=== PATIENT | male | born 1955 | race Caucasian/White ===

== ENCOUNTER 2021-07-14 20:43 | Emergency (ER) | payer MEDICARE | END 2021-07-14 20:52 | disposition left against medical advice (07) | LOC: ER 20:43 | DX: R07.89 Other chest pain (principal); Z53.21 Procedure and treatment not carried out due to patient leaving prior to being seen by health care provider ==

== ENCOUNTER 2021-10-02 19:33 | Inpatient (IN) | payer MEDICARE ==
[~2021-10-02] VITALS: Ht 182.9 cm; Wt 107.1 kg
[2021-10-02] MEDS ORDERED: NITROGLYCERIN SUBLINGUAL 0.4 MG BOTTLE OF 25. SL PRN (20:00)
[2021-10-02 20:09] LABS: BASO # 0.1 x10^3/uL (0.0-0.2); BASO % 1 % (0-3); EOS # 0.1 x10^3/uL (0.0-0.7); EOS % 1 % (0-3); HEMATOCRIT 47.6 % (39.0-53.0); HEMOGLOBIN 15.9 g/dL (13.0-17.5); LYMPH # 2.5 x10^3/uL (1.0-4.8); LYMPH % 20 % (24-48); MEAN CORPUSCULAR HEMOGLOBIN 29 pg (25-35); MEAN CORPUSCULAR HGB CONC 33 g/dL (31-37); MEAN CORPUSCULAR VOLUME 86 fL (79-100); MONO # 0.6 x10^3/uL (0.0-1.1); MONO % 5 % (0-9); NEUT # 8.9 x10^3/uL (1.8-7.7); NEUT % 73 % (31-73); PLATELET COUNT 215 x10^3/uL (140-400); RED BLOOD COUNT 5.55 x10^6/uL (4.30-5.70); RED CELL DISTRIBUTION WIDTH 14.1 % (11.5-14.5); WHITE BLOOD COUNT 12.2 x10^3/uL (4.0-11.0)
[2021-10-02] MEDS ORDERED: ONDANSETRON PF 4 MG/2 ML VIAL. ONE (20:12)
[2021-10-02] MEDS: MORPHINE SULFATE 4 MG/ML INJ. IV/SQ PRN ×3 (20:12→20:16)
[2021-10-02 20:22] LABS: CALCIUM 8.4 mg/dL (8.5-10.1); CREATININE 1.1 mg/dL (0.7-1.3); POTASSIUM 3.5 mmol/L (3.5-5.1)
[2021-10-02 20:27] LABS: ALBUMIN 3.4 g/dL (3.4-5.0); ALBUMIN/GLOBULIN RATIO 0.9 (1.0-1.7); MAGNESIUM 1.9 mg/dL (1.8-2.4); TOTAL BILIRUBIN 0.4 mg/dL (0.2-1.0)
[2021-10-02] MEDS ORDERED: ASPIRIN 325 MG TABLET PO ONE (20:30)
--- NOTE | 2021-10-02 20:33 | EKG ---
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
--- NOTE | 2021-10-02 20:42 | RAD ---
XR CHEST 1V 10/02/2021 8:07 PM INDICATION: Chest pain COMPARISON: None available TECHNIQUE: Portable frontal view of the chest is provided. FINDINGS: The cardiomediastinal silhouette is within normal limits. There is mild perihilar interstitial promin ence.. There are no significant pleural effusions. There is no pulmonary vascular congestion. No pneumothora x. No suspicious osseous abnormality. IMPRESSION: There is mild perihilar interstitial prominence as may be seen with interstitial pneumonitis of infec tious/inflammatory etiology versus developing interstitial edema. Short-term follow-up two-view chest radiograph could be of benefit. Electronically signed by: Nidia Cee MD (10/02/2021 8:40 PM) GIL
[2021-10-02] MEDS ORDERED: HEPARIN for IV BOLUS 10,000 UNIT/10 ML VIAL. IV PRN (20:45)
[2021-10-02] MEDS ORDERED: ONDANSETRON PF 4 MG/2 ML VIAL. IVP ONE (20:45)
[2021-10-02] MEDS ORDERED: NITROGLYCERIN PREMIX 250 ML IV ONE ×2 (20:45→21:00)
[2021-10-02] MEDS ORDERED: HEPARIN 25,000UTS/250ML PREMIX 250 ML IV PRN (20:45)
[2021-10-02] MEDS ORDERED: fentaNYL PF VIAL 100 MCG/2 ML VIAL ONE ×2 (20:47→21:42)
--- NOTE | 2021-10-02 20:51 | PHYS DOC ---
Past Medical History Past Medical History: A-Fib, Hypertension (SHANE ESTRADA POLEYARD SUPERVISOR) Past Surgical History: Other Additional Past Surgical Histo: cardiac ablation (SHANE ESTRADA POLEYARD SUPERVISOR) Smoking Status: Never Smoker Alcohol Use: None (SHANE ESTRADA POLEYARD SUPERVISOR) General Adult EDM: Chief Complaint: CHEST PAIN HPI: HPI: Patient is a 66 year old male with history of hypertension, A. fib, not on any medications by his choice, current smoker who presents the ED today complaining of sharp constant 6 out of 10 left-sided chest pain that began this afternoon around "noonish". Patient states the pain radiates to the left arm, he states he had similar pain on Wednesday this week but it went away. Patient states he does not have a PCP right now. He states he used to be on blood pressure medicines and heart medicines but stopped taking them around 4 months ago because he was gaining weight. (SHANE ESTRADA POLEYARD SUPERVISOR) Review of Systems: Review of Systems: Constitutional: Denies fever or chills. [] Eyes: Denies change in visual acuity. [] HENT: Denies nasal congestion or sore throat. [] Respiratory: Denies cough or shortness of breath. [] Cardiovascular: Reports chest pain GI: Denies abdominal pain, nausea, vomiting, bloody stools or diarrhea. [] : Denies dysuria. [] Musculoskeletal: Denies back pain or joint pain. [] Integument: Denies rash. [] Neurologic: Denies headache, focal weakness or sensory changes. [] Psychiatric: Denies depression or anxiety. [] (SHANE ESTRADA POLEYARD SUPERVISOR) Heart Score: C/O Chest Pain: Yes HEART Score for Chest Pain: HEART Score for Chest Pain Response (Comments) Value History Highly Suspicious [address] Depression 2 Age > 65 2 Risk Factors >3 Risk Factors or Hx CAD 2 Troponin >3 x Normal Limit 2 Total 10 Risk Factors: Risk Factors: DM, Current or recent (<one month) smoker, HTN, HLP, family history of CAD, obesity. Risk Scores: Score 0 - 3: 2.5% MACE over next 6 weeks - Discharge Home Score 4 - 6: 20.3% MACE over next 6 weeks - Admit for Clinical Observation Score 7 - 10: 72.7% MACE over next 6 weeks - Early Invasive Strategies (SHANE ESTRADA APRN) C/O Chest Pain: Yes HEART Score for Chest Pain: HEART Score for Chest Pain Response (Comments) Value History Highly Suspicious [address] Depression 2 Age >45 - < 65 1 Risk Factors >3 Risk Factors or Hx CAD 2 Troponin >3 x Normal Limit 2 Total 9 (JHOANA MENDOZA DO) Current Medications: Current Medications Medications (Trade) Dose Ordered Sig/Massiel Start Time Stop Time Status Last Admin Dose Admin Aspirin (Óscar Aspirin) 325 mg 1X ONCE 10/02/21 20:30 10/02/21 20:31 DC 10/02/21 20:13 325 MG Heparin Sodium (Porcine) (Heparin Sodium) 2,700 unit PRN Q6HRS PRN 10/02/21 20:45 UNV Heparin Sodium/ Dextrose 250 ml @ 0 mls/hr CONT PRN 10/02/21 20:45 UNV Morphine Sulfate (Morphine Sulfate) 4 mg PRN Q15MIN PRN 10/02/21 20:00 10/03/21 19:59 10/02/21 20:16 4 MG Nitroglycerin (Nitrostat) 0.4 mg PRN Q5MIN PRN 10/02/21 20:00 10/03/21 19:59 Nitroglycerin/ Dextrose 250 ml @ 1.5 mls/hr 1X ONCE 10/02/21 20:45 10/02/21 20:46 DC Ondansetron HCl (Zofran) 4 mg STK-MED ONCE 10/02/21 20:12 10/02/21 20:13 DC (SHANE ESTRADA POLEYARD SUPERVISOR) Allergies: Allergies: Allergies Coded Allergies Type Severity Reaction Last Updated Verified No Known Drug Allergies 10/02/21 No (SHANE ESTRADA POLEYARD SUPERVISOR) Physical Exam: PE: Constitutional: Well developed, well nourished, no acute distress, non-toxic appearance. [] HENT: Normocephalic, atraumatic, bilateral external ears normal, oropharynx moist, no oral exudates, nose normal. [] Eyes: PERRLA, EOMI, conjunctiva normal, no discharge. [] Neck: Normal range of motion, no tenderness, supple, no stridor. [] Cardiovascular:Heart rate regular rhythm, no murmur [] Lungs & Thorax: Bilateral breath sounds clear to auscultation [] Abdomen: Bowel sounds normal, soft, no tenderness, no masses, no pulsatile masses. [] Skin: Warm, dry, no erythema, no rash. [] Back: No tenderness, no CVA tenderness. [] Extremities: No tenderness, no cyanosis, no clubbing, ROM intact, no edema. [] Neurologic: Alert and oriented X 3, normal motor function, normal sensory function, no focal deficits noted. [] Psychologic: Affect normal, judgement normal, mood normal. [] (SHANE ESTRADA APRN) Current Patient Data: Labs: Laboratory Tests Test 10/02/21 19:50 White Blood Count 12.2 x10^3/uL (4.0-11.0) H Red Blood Count 5.55 x10^6/uL (4.30-5.70) Hemoglobin 15.9 g/dL (13.0-17.5) Hematocrit 47.6 % (39.0-53.0) Mean Corpuscular Volume 86 fL (79-100) Mean Corpuscular Hemoglobin 29 pg (25-35) Mean Corpuscular Hemoglobin Concent 33 g/dL (31-37) Red Cell Distribution Width 14.1 % (11.5-14.5) Platelet Count 215 x10^3/uL (140-400) Neutrophils (%) (Auto) 73 % (31-73) Lymphocytes (%) (Auto) 20 % (24-48) L Monocytes (%) (Auto) 5 % (0-9) Eosinophils (%) (Auto) 1 % (0-3) Basophils (%) (Auto) 1 % (0-3) Neutrophils # (Auto) 8.9 x10^3/uL (1.8-7.7) H Lymphocytes # (Auto) 2.5 x10^3/uL (1.0-4.8) Monocytes # (Auto) 0.6 x10^3/uL (0.0-1.1) Eosinophils # (Auto) 0.1 x10^3/uL (0.0-0.7) Basophils # (Auto) 0.1 x10^3/uL (0.0-0.2) Sodium Level 138 mmol/L (136-145) Potassium Level 3.5 mmol/L (3.5-5.1) Chloride Level 101 mmol/L (98-107) Carbon Dioxide Level 29 mmol/L (21-32) Anion Gap 8 (6-14) Blood Urea Nitrogen 15 mg/dL (8-26) Creatinine 1.1 mg/dL (0.7-1.3) Estimated GFR (Cockcroft-Gault) 67.0 BUN/Creatinine Ratio 14 (6-20) Glucose Level 236 mg/dL (70-99) H Calcium Level 8.4 mg/dL (8.5-10.1) L Magnesium Level 1.9 mg/dL (1.8-2.4) Total Bilirubin 0.4 mg/dL (0.2-1.0) Aspartate Amino Transferase (AST) 38 U/L (15-37) H Alanine Aminotransferase (ALT) 23 U/L (16-63) Alkaline Phosphatase 165 U/L (46-116) H Troponin I High Sensitivity 3251 ng/L (4-75) H TF-Cau-Q-Type Natriuretic Peptide 931 pg/mL (0-124) H Total Protein 7.0 g/dL (6.4-8.2) Albumin 3.4 g/dL (3.4-5.0) Albumin/Globulin Ratio 0.9 (1.0-1.7) L Thyroid Stimulating Hormone (TSH) 2.701 uIU/mL (0.358-3.74) Laboratory Tests 10/02/21 19:50 Laboratory Tests 10/02/21 19:50 Vital Signs: Vital Signs Date Time Temp Pulse Resp B/P (MAP) Pulse Ox O2 Delivery O2 Flow Rate FiO2 10/02/21 20:16 16 98 Room Air 10/02/21 19:57 99.5 93 204/89 (127) 99.5 (SHANE ESTRADA APRN) EKG: EKG: [] (SHANE ESTRADA APRN) Radiology/Procedures: Radiology/Procedures: []PROCEDURE: PORTABLE CHEST 1V XR CHEST 1V 10/02/2021 8:07 PM INDICATION: Chest pain COMPARISON: None available TECHNIQUE: Portable frontal view of the chest is provided. FINDINGS: The cardiomediastinal silhouette is within normal limits. There is mild perihilar interstitial prominence.. There are no significant pleural effusions. There is no pulmonary vascular congestion. No pneumothorax. No suspicious osseous abnormality. IMPRESSION: There is mild perihilar interstitial prominence as may be seen with interstitial pneumonitis of infectious/inflammatory etiology versus developing interstitial edema. Short-term follow-up two-view chest radiograph could be of benefit. Electronically signed by: Kevin Rodriguez MD (10/02/2021 8:40 PM) [facility] DICTATED and SIGNED BY: KEVIN RODRIGUEZ MD DATE: 10/02/212037 (SHANE ESTRADA APRN) Course & Med Decision Making: Course & Med Decision Making Pertinent Labs and Imaging studies reviewed. (See chart for details) This is a 66-year-old male patient presented to the ED today complaining of chest pain that began today. Reports having similar pain on Wednesday this week. EKG positive for STEMI. Troponin 3251 Dr. Mendoza evaluated patient. Patient was taken to Professor Of Practice by Dr. Talamantes (SHANE ESTRADA APRN) Course & Med Decision Making 2000HRS- Noted an acute change on monitor technician - appeared to have ST elevation Patient also noted increased pain and vomited. EKG concerning for stemi ST depression 1, avl, v2-v4 ST elevation 3 and AVF Lab called with trop >3000 Cardiology pages. Heprin and nitro ordered. 2100hrs- Discussed patient with Cardiology. EKG reviewed. Will active a STEMI. Patients Care and treatment plan provided by in conjunction with ER Nurse Practitioner. I personally evaluated the patient. (JHOANA MENDOZA DO) Dragon Disclaimer: Chuy Disclaimer: This electronic medical record was generated, in whole or in part, using a voice recognition dictation system. (SHANE ESTRADA APRN) Departure Departure Impression: Primary Impression: STEMI (ST elevation myocardial infarction) Qualified Codes: I21.3 - ST elevation (STEMI) myocardial infarction of unspecified site Additional Impressions: Chest pain Qualified Codes: R07.9 - Chest pain, unspecified Smoking addiction Disposition: ADMITTED INPATIENT Admitting Physician: SOFIA (JHOANA MENDOZA DO) Condition: STABLE Referrals: UNKNOWN PCP NAME (PCP) SHANE ESTRADA APRN Oct 02, 2021 20:51 JHOANA MENDOZA DO Oct 02, 2021 21:22
[2021-10-02] MEDS ORDERED: HEPARIN for IV BOLUS 10,000 UNIT/10 ML VIAL. IV ONE (21:15)
[2021-10-02] MEDS ORDERED: fentaNYL PF VIAL 100 MCG/2 ML VIAL IVP ONE (21:15)
[2021-10-02] MEDS ORDERED: HEPARIN for ARTERIAL LINE 1,500 ML ONE (21:37)
[2021-10-02] MEDS ORDERED: IODIXANOL 320 MG/ML 100 ML VIAL. ONE (21:37)
[2021-10-02] MEDS ORDERED: LIDOCAINE 1% Multi-Dose 20 ML VIAL. ONE (21:37)
[2021-10-02] MEDS ORDERED: MIDAZOLAM HCL/PF 2 MG/2 ML VIAL. ONE (21:42)
[2021-10-02] MEDS ORDERED: VERAPAMIL 5 MG/2 ML VIAL. ONE (21:42)
[2021-10-02] MEDS ORDERED: HEPARIN for IV BOLUS 10,000 UNIT/10 ML VIAL. ONE (21:42)
[2021-10-02] MEDS ORDERED: NITROGLYCERIN 200 MCG/2 ML SYRINGE FOR CATH/VASC LAB. ONE ×2 (21:43→22:48)
[2021-10-02 21:52] LABS: BACTERIA,URINE 0 /HPF (0-FEW); RBC,URINE 0 /HPF (0-2); WBC,URINE RARE /HPF (0-4)
[2021-10-02] MEDS ORDERED: TIROFIBAN 12.5MG -0.9% NS 250 ML IV ONE (22:05)
[2021-10-02] MEDS: TIROFIBAN 12.5MG -0.9% NS 250 ML IV PRN (22:07)
[2021-10-02] MEDS ORDERED: ATROPINE 0.5 MG/5 ML DISP.SYRINGE. ONE (22:09)
[2021-10-02] MEDS ORDERED: ATROPINE 1 MG/10 ML DISP.SYRINGE. ONE (22:10)
[2021-10-02] MEDS ORDERED: fentaNYL PF VIAL 100 MCG/2 ML VIAL IV ONE (22:30)
[2021-10-02] MEDS ORDERED: CONTRAST GIVEN. MC PRN (22:30)
[2021-10-02] MEDS ORDERED: PRASUGREL 10 MG TABLET. PO ONE (22:30)
[2021-10-02] MEDS ORDERED: IODIXANOL 320 MG/ML 100 ML VIAL. IART ONE (22:30)
[2021-10-02] MEDS ORDERED: NITROGLYCERIN 200 MCG/2 ML SYRINGE FOR CATH/VASC LAB. IART ONE (22:30)
[2021-10-02] MEDS ORDERED: LIDOCAINE 1% PF 2 ML VIAL. INJ ONE (22:30)
[2021-10-02] MEDS ORDERED: PRASUGREL 10 MG TABLET. ONE (22:30)
[2021-10-02] MEDS ORDERED: VERAPAMIL 5 MG/2 ML VIAL. IART ONE (22:30)
[2021-10-02] MEDS ORDERED: MIDAZOLAM HCL/PF 2 MG/2 ML VIAL. IV ONE (22:30)
[2021-10-02] MEDS ORDERED: HEPARIN for IV BOLUS 10,000 UNIT/10 ML VIAL. IART ONE (22:30)
[2021-10-02] MEDS ORDERED: ONDANSETRON PF 4 MG/2 ML VIAL. IVP PRN (22:45)
[2021-10-02] MEDS ORDERED: MORPHINE SULFATE 4 MG/ML INJ. IVP PRN (22:45)
[2021-10-02 22:50] VITALS: BP 176/88
[2021-10-02 23:05] VITALS: BP 144/70
[2021-10-02 23:15] VITALS: BP 148/67
--- NOTE | 2021-10-02 23:18 | CONS ---
DATE OF CONSULTATION: 10/02/2021 REASON FOR CONSULTATION: High risk non-STEMI. HISTORY OF PRESENT ILLNESS: The patient is a pleasant 66-year-old man with past medical history as noted below who presents to the hospital in the setting of stuttering chest pain. His initial EKG suggestive of some mild ischemic changes, but a repeat EKG was concerning for a more high risk non-STEMI with significant inferolateral ST segment depressions and subtle ST elevations in the inferior leads. Therefore, he was emergently taken to the catheterization laboratory for further evaluation given ongoing chest discomfort. PAST MEDICAL HISTORY: 1. Hypertension. 2. Dyslipidemia. 3. Tobacco abuse. 4. Diabetes. 5. Obesity. 6. Atrial fibrillation. SOCIAL HISTORY: The patient denies any alcohol, illicit drug use. He is . He has moved here to [place] from [place] because of his son. He unfortunately currently not taking any medications. FAMILY HISTORY: Noncontributory. REVIEW OF SYSTEMS: Negative for 10 out of 14 systems reviewed, unless otherwise mentioned above in HPI. ALLERGIES: No known drug allergies. CURRENT CARDIOVASCULAR MEDICATIONS: None. PHYSICAL EXAMINATION: VITAL SIGNS: Afebrile, heart rate 84, blood pressure 160/80, pulse ox 97% on 2 liters. GENERAL: He is alert and oriented, in no acute distress. HEAD AND NECK: Unremarkable. CARDIAC: Regular rate and rhythm without murmurs, rubs or gallops. LUNGS: Clear to auscultation bilaterally. ABDOMEN: Obese, protuberant, nontender. EXTREMITIES: No clubbing, cyanosis, or edema with 2+ radial and dorsalis pedis pulses. NEUROLOGIC: No focal deficits. MUSCULOSKELETAL: No trauma. DIAGNOSTIC STUDIES: EKG as noted above. LABORATORY DATA: Troponin is elevated to 3000. Creatinine and hemoglobin are unremarkable. IMPRESSION: High risk non-STEMI with culprit lesion being in the RCA with successful PCI with overlapping stents with intravascular ultrasound guidance. RECOMMENDATIONS: 1. Aspirin 81 mg daily. 2. Prasugrel 10 mg daily. 3. Continue Tirofiban drip for another 18 hours. Continue supportive care for now and blood pressure management. We will initiate high dose statin therapy and cardiac rehabilitation referral. Anticipate discharge in the next 24 hours. Thank you for this consultation. ESHA DR: Dipika TID: [id number]
[2021-10-02 23:30] VITALS: BP 156/72
--- NOTE | 2021-10-02 23:41 | CARD ---
MR#: [id number] Date of Study: 10/02/2021 Ordering Physician: HARIS KHAN, Referring Physician: HARIS KHAN, Tech: RT Estephanie(R) APPROVED REPORT Technologist: RT Estephanie(R) Nurse: Malaika Fowler RN Procedure(s) performed: fluoro time: 7.4 min dose: 72 gycm2 contrast: 112cc mod sedation: 50min LHC, Coronary angiography PCI of the RCA with IVUS guidance for ACUTE UT HISTORY The patient is a 66 year-old male with a history of : tobacco history() , hypertension, dyslipidemia. INDICATION The indication(s) include : non-STEMI . [facility] Clinical Frailty Scale [facility] Clinical Frailty Scale: Moderately Frail Heart Failure Heart Failure: Yes If Yes, Newly Diagnosed: No If Yes, HF Type: Diastolic If Yes, NYHA Class: Class III CASE TECHNIQUE IV conscious sedation was used throughout procedure with appropriate monitoring and was performed in the presence of a registered nurse who was an independent trained observer other than the physician p erforming the procedure. During this case, Fluoroscopy and low osmolar contrast were used for imaging . Specimen(s) Removed: N/A Estimated Blood loss: 15 cc's. PROCEDURE NARRATIVE Clinical information: 66-year-old male presented to the hospital in the setting of stuttering chest pain for about 1 week. He was found to have an elevated troponin and due to persistent pain and EKG changes suggestive of a ctive ischemia he was taken urgently to the catheterization laboratory. Procedure details: After appropriate informed consent the right wrist was prepped and draped in usual sterile fashion. Under 1% lidocaine local anesthesia a 6 [place] sheath was placed in the right radial artery. Diagnos tic angiography was then performed with a 6 [place] TIG catheter. Left ventricular end-diastolic pres sure was obtained with a TIG catheter and a pullback was performed. Findings: Aorta 160/80 LVEDP 15 mmHg No LV to aortic pullback gradient Coronary angiography: Left main is a large caliber vessel with normal angiographic appearance LAD is a moderate to large caliber vessel with mild diffuse luminal irregularities of up to 20% D1 is a small to moderate caliber vessel with a proximal 50% stenosis Left circumflex is a moderate caliber nondominant vessel with mild diffuse irregularities of up to 20 % OM1 is a small to moderate caliber vessel with mild to moderate diffuse irregularities of up to 30% RCA is a large caliber dominant vessel with a mid subtotal occlusion. Interventional technique: Heparin and tirofiban were used for anticoagulation. Through a 6 [place] JR4 guide catheter a Prowate r wire was placed in the distal RCA. Balloon angioplasty was performed with a 3.0 x 15 mm balloon. Intravascular ultrasound was then obtained and vessel size measured approximately 4.5-4.0 from the pr oximal to the distal segment of the RCA. Next, a Promus 4.0 x 38 and a resolute 4.5 x 22 mm drug-elu ting stents were implanted in the proximal and mid to distal RCA in overlapping fashion. The overlap segment was then postdilated with the 4.5 mm noncompliant balloon at nominal pressure. Final angiog tramaine demonstrated excellent stent expansion with SERENA-3 flow in the vessel no evidence of guide or w gt related complications. The patient received 60 mg of prasugrel at case completion. At case comp letion the sheaths and catheters were removed and hemostasis was achieved via a Terumo radial band in flated to 11 mL. No acute complications PCI Technique Lesion The lesion stenosis prior to intervention was % with SERENA 1 flow. SERENA Flow SERENA Flow (Pre-Intervention): SERENA-1 SERENA Flow (Post-Intervention): SERENA-3 Conclusion 1. Acute on chronic diastolic heart failure in the setting of high risk non-ST elevation UT 2. One-vessel coronary artery disease, status post PCI of the proximal and mid RCA with implantation of overlapping 4.5 x 22 and 4.0 x 38 mm drug-eluting stents with intravascular ultrasound guidance. Recommendations Aspirin 81 mg daily Prasugrel 10 mg daily Cardiac rehabilitation therapy High-dose statin therapy Signed by : Haris Khan, Electronically Approved : 10/02/2021 23:41:01
[2021-10-02 23:45] VITALS: BP 150/68
[2021-10-03] VITALS (28 sets, daily range): BP systolic 105–164; BP diastolic 62–108
[2021-10-03 02:35] LABS: BASO # 0.1 x10^3/uL (0.0-0.2); BASO % 1 % (0-3); EOS # 0.1 x10^3/uL (0.0-0.7); EOS % 1 % (0-3); HEMATOCRIT 46.6 % (39.0-53.0); HEMOGLOBIN 15.5 g/dL (13.0-17.5); LYMPH # 3.1 x10^3/uL (1.0-4.8); LYMPH % 26 % (24-48); MEAN CORPUSCULAR HEMOGLOBIN 28 pg (25-35); MEAN CORPUSCULAR HGB CONC 33 g/dL (31-37); MEAN CORPUSCULAR VOLUME 85 fL (79-100); MONO % 8 % (0-9); NEUT # 7.7 x10^3/uL (1.8-7.7); NEUT % 65 % (31-73); PLATELET COUNT 220 x10^3/uL (140-400); RED BLOOD COUNT 5.46 x10^6/uL (4.30-5.70); WHITE BLOOD COUNT 11.9 x10^3/uL (4.0-11.0)
[2021-10-03 02:59] LABS: ALBUMIN 3.3 g/dL (3.4-5.0); ALBUMIN/GLOBULIN RATIO 1.1 (1.0-1.7); CALCIUM 8.4 mg/dL (8.5-10.1); CREATININE 0.8 mg/dL (0.7-1.3); GFR 96.7; POTASSIUM 3.9 mmol/L (3.5-5.1); TOTAL BILIRUBIN 0.4 mg/dL (0.2-1.0); TOTAL PROTEIN 6.2 g/dL (6.4-8.2)
[2021-10-03] MEDS: TIROFIBAN 12.5MG -0.9% NS 250 ML IV PRN (06:32)
--- NOTE | 2021-10-03 07:20 | EKG ---
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
--- NOTE | 2021-10-03 07:34 | PDOC ---
REBECA RINALDI FUNERAL CAR DRIVER 10/03/21 0734: CARDIO Progress Notes Date and Time Date of Service 10/03/2021 Time of Evaluation 0800 Subjective Subjective: No Chest Pain, No shortness of breath, No Palpitations Vitals Vitals Vital Signs Date Time Temp Pulse Resp B/P (MAP) Pulse Ox O2 Delivery O2 Flow Rate FiO2 10/03/21 06:00 79 13 132/73 (92) 92 Room Air 10/03/21 04:00 99.7 99.7 10/02/21 22:50 2.0 Weight Weight [ ] Input and Output Intake and Output Intake and Output 10/03/21 07:00 Intake Total 641.8 ml Output Total 350 ml Balance 291.8 ml Intake Oral 400 ml IV Total 241.8 ml Output Urine Total 350 ml Laboratory Labs Laboratory Tests Test 10/02/21 19:50 10/02/21 21:36 10/02/21 22:10 10/03/21 02:00 White Blood Count 12.2 x10^3/uL (4.0-11.0) 11.9 x10^3/uL (4.0-11.0) Red Blood Count 5.55 x10^6/uL (4.30-5.70) 5.46 x10^6/uL (4.30-5.70) Hemoglobin 15.9 g/dL (13.0-17.5) 15.5 g/dL (13.0-17.5) Hematocrit 47.6 % (39.0-53.0) 46.6 % (39.0-53.0) Mean Corpuscular Volume 86 fL (79-100) 85 fL (79-100) Mean Corpuscular Hemoglobin 29 pg (25-35) 28 pg (25-35) Mean Corpuscular Hemoglobin Concent 33 g/dL (31-37) 33 g/dL (31-37) Red Cell Distribution Width 14.1 % (11.5-14.5) 14.0 % (11.5-14.5) Platelet Count 215 x10^3/uL (140-400) 220 x10^3/uL (140-400) Neutrophils (%) (Auto) 73 % (31-73) 65 % (31-73) Lymphocytes (%) (Auto) 20 % (24-48) 26 % (24-48) Monocytes (%) (Auto) 5 % (0-9) 8 % (0-9) Eosinophils (%) (Auto) 1 % (0-3) 1 % (0-3) Basophils (%) (Auto) 1 % (0-3) 1 % (0-3) Neutrophils # (Auto) 8.9 x10^3/uL (1.8-7.7) 7.7 x10^3/uL (1.8-7.7) Lymphocytes # (Auto) 2.5 x10^3/uL (1.0-4.8) 3.1 x10^3/uL (1.0-4.8) Monocytes # (Auto) 0.6 x10^3/uL (0.0-1.1) 1.0 x10^3/uL (0.0-1.1) Eosinophils # (Auto) 0.1 x10^3/uL (0.0-0.7) 0.1 x10^3/uL (0.0-0.7) Basophils # (Auto) 0.1 x10^3/uL (0.0-0.2) 0.1 x10^3/uL (0.0-0.2) Prothrombin Time 13.0 SEC (11.7-14.0) Prothromb Time International Ratio 1.0 (0.8-1.1) Activated Partial Thromboplast Time 30 SEC (24-38) Sodium Level 138 mmol/L (136-145) 140 mmol/L (136-145) Potassium Level 3.5 mmol/L (3.5-5.1) 3.9 mmol/L (3.5-5.1) Chloride Level 101 mmol/L (98-107) 104 mmol/L (98-107) Carbon Dioxide Level 29 mmol/L (21-32) 28 mmol/L (21-32) Anion Gap 8 (6-14) 8 (6-14) Blood Urea Nitrogen 15 mg/dL (8-26) 14 mg/dL (8-26) Creatinine 1.1 mg/dL (0.7-1.3) 0.8 mg/dL (0.7-1.3) Estimated GFR (Cockcroft-Gault) 67.0 96.7 BUN/Creatinine Ratio 14 (6-20) 18 (6-20) Glucose Level 236 mg/dL (70-99) 108 mg/dL (70-99) Calcium Level 8.4 mg/dL (8.5-10.1) 8.4 mg/dL (8.5-10.1) Magnesium Level 1.9 mg/dL (1.8-2.4) Total Bilirubin 0.4 mg/dL (0.2-1.0) 0.4 mg/dL (0.2-1.0) Aspartate Amino Transf (AST/SGOT) 38 U/L (15-37) 56 U/L (15-37) Alanine Aminotransferase (ALT/SGPT) 23 U/L (16-63) 21 U/L (16-63) Alkaline Phosphatase 165 U/L (46-116) 157 U/L (46-116) Troponin I High Sensitivity 3251 ng/L (4-75) 98311 ng/L (4-75) CM-Iyv-E-Type Natriuretic Peptide 931 pg/mL (0-124) Total Protein 7.0 g/dL (6.4-8.2) 6.2 g/dL (6.4-8.2) Albumin 3.4 g/dL (3.4-5.0) 3.3 g/dL (3.4-5.0) Albumin/Globulin Ratio 0.9 (1.0-1.7) 1.1 (1.0-1.7) Thyroid Stimulating Hormone (TSH) 2.701 uIU/mL (0.358-3.74) Urine Collection Type Unknown Urine Color (Auto) Light yellow Urine Turbidity Clear Urine pH (Auto) 5.5 (<5.0-8.0) Urine Specific [place] 1.031 (1.000-1.030) Urine Protein (Auto) Negative mg/dL (Negative) Urine Glucose (Auto)(UA) 100 mg/dL (Negative) Urine Ketones (Auto) Negative mg/dL (Negative) Urine Blood (Auto) Negative (Negative) Urine Nitrite Negative (Negative) Urine Bilirubin (Auto) Negative (Negative) Urine Urobilinogen (Auto) Normal mg/dL (Normal) Urine Leukocyte Esterase (Auto) Negative (Negative) Urine RBC 0 /HPF (0-2) Urine WBC Rare /HPF (0-4) Urine Squamous Epithelial Cells Occ /LPF Urine Bacteria 0 /HPF (0-FEW) Urine Mucus Slight /LPF Activated Clotting Time 250 sec (92-181) Physical Exam HEENT: Neck Supple W Full Motion Chest: Symmetric LUNGS: Clear to Auscultation Heart: S1S2, RRR (SR) Abdomen: Soft N/T Extremities: No Edema, No Calf Tenderness Neurology: alert, oriented, follow commands Assessment Assessment 1. High risk NSTEMI: S/P PCI/SHERINE to proximal and mid RCA 2. CAD: as above 3. HTN: controlled 4. HLP 5. DM2: per PCP 6. PAFIB: unclear details Recommendations 1. Continue aggrastat 18 hrs post. Start on ASA and effient. DC NTG 2. Start secondary prevention measures 3. FLP, TTE, A1C Justicifation of Admission Dx: Justifications for Admission: Justification of Admission Dx: Yes HARIS KHAN MD 10/03/21 5907: CARDIO Progress Notes Plan Plan Pt. seen and examined on 10/03/21 Agree with above WOOD CRAFTSMAN note. Patient had some melena and BRBPR. Monitor for any bleeding. Stop tirofiban. BP is well controlled. Echo wnl. Anticipate DC tmrw if no further bleeding issues. Thanks REBECA RINALDI [employer]IVER Oct 03, 2021 07:34 HARIS KHAN MD Oct 03, 2021 23:07
[2021-10-03 08:21] LABS: CHOLESTEROL/HDL RATIO 6.9
--- NOTE | 2021-10-03 08:21 | PDOC1 ---
History and Physical Date of Admission Date of Admission DATE: 10/03/21 TIME: 07:56 Identification/Chief Complaint Chief Complaint Chest pain Source Source: Patient History of Present Illness History of Present Illness Patient is a 66-year-old male with past medical history hypertension, who presents to the ED with complaints of sharp chest pain. On EKG initial concern was for STEMI, repeat EKG showed more high risk NSTEMI. Labs on admission showed WBC 12.2, CBG 236, high sensitive troponin 21,191. Due to significant ST depressions and continuous pain he was taken directly to [facility]. Patient has been admitted for further medical management. Past Medical History Past Medical History HTN, HLD, DM2, obesity, atrial fibrillation Past Surgical History Past Surgical History Cardiac ablation Family History Family History Strong family history of [place] and cardiac disease Social History Smoke: <1 pack per day ALCOHOL: none Drugs: None Current Problem List Problem List Problems Medical Problems: (1) Chest pain Status: Acute (2) Smoking addiction Status: Acute (3) STEMI (ST elevation myocardial infarction) Status: Acute Current Medications Current Medications Current Medications Aspirin (Óscar Aspirin) 325 mg 1X ONCE PO Last administered on 10/02/21at 20:13; Start 10/02/21 at 20:30; Stop 10/02/21 at 20:31; Status DC Nitroglycerin (Nitrostat) 0.4 mg PRN Q5MIN PRN SL CP RATING > 1/10; Start 10/02/21 at 20:00; Stop 10/03/21 at 19:59 Morphine Sulfate (Morphine Sulfate) 4 mg PRN Q15MIN PRN IV/SQ PAIN GREATER THAN 3/10 Last administered on 10/02/21at 20:16; Start 10/02/21 at 20:00; Stop 10/03/21 at 19:59 Ondansetron HCl (Zofran) 4 mg 1X ONCE IVP Last administered on 10/02/21at 20:15; Start 10/02/21 at 20:45; Stop 10/02/21 at 20:46; Status DC Ondansetron HCl (Zofran) 4 mg STK-MED ONCE .ROUTE ; Start 10/02/21 at 20:12; Stop 10/02/21 at 20:13; Status DC Nitroglycerin/ Dextrose 250 ml @ 1.5 mls/hr 1X ONCE IV Last administered on 10/02/21at 20:53; Start 10/02/21 at 21:00; Stop 10/09/21 at 19:39 Nitroglycerin/ Dextrose 250 ml @ 1.5 mls/hr 1X ONCE IV ; Start 10/02/21 at 20:45; Stop 10/02/21 at 20:46; Status DC Heparin Sodium/ Dextrose 250 ml @ 12.924 mls/ hr CONT PRN IV PER PROTOCOL; Start 10/02/21 at 20:45; Stop 10/02/21 at 21:15; Status DC Heparin Sodium (Porcine) (Heparin Sodium) 2,700 unit PRN Q6HRS PRN IV FOR UFH LEVEL LESS THAN 0.2; Start 10/02/21 at 20:45; Stop 10/02/21 at 21:15; Status DC Fentanyl Citrate (Fentanyl 2ml Vial) 100 mcg STK-MED ONCE .ROUTE ; Start 10/02/21 at 20:47; Stop 10/02/21 at 20:48; Status DC Fentanyl Citrate (Fentanyl 2ml Vial) 50 mcg 1X ONCE IVP Last administered on 10/02/21at 21:06; Start 10/02/21 at 21:15; Stop 10/02/21 at 21:16; Status DC Heparin Sodium (Porcine) (Heparin Sodium) 4,000 unit 1X ONCE IV Last administered on 10/02/21at 21:22; Start 10/02/21 at 21:15; Stop 10/02/21 at 21:17; Status DC Iodixanol (Visipaque 320) 100 ml STK-MED ONCE .ROUTE ; Start 10/02/21 at 21:37; Stop 10/02/21 at 21:37; Status DC Lidocaine HCl (Lidocaine 1% 20ml Vial) 20 ml STK-MED ONCE .ROUTE ; Start 10/02/21 at 21:37; Stop 10/02/21 at 21:37; Status DC Heparin Sodium/ Sodium Chloride 1,500 ml @ As Directed STK-MED ONCE .ROUTE ; Start 10/02/21 at 21:37; Stop 10/02/21 at 21:37; Status DC Fentanyl Citrate (Fentanyl 2ml Vial) 100 mcg STK-MED ONCE .ROUTE ; Start 10/02/21 at 21:42; Stop 10/02/21 at 21:42; Status DC Midazolam HCl (Versed) 2 mg STK-MED ONCE .ROUTE ; Start 10/02/21 at 21:42; Stop 10/02/21 at 21:43; Status DC Heparin Sodium (Porcine) (Heparin Sodium) 10,000 unit STK-MED ONCE .ROUTE ; Start 10/02/21 at 21:42; Stop 10/02/21 at 21:43; Status DC Verapamil HCl (Verapamil) 5 mg STK-MED ONCE .ROUTE ; Start 10/02/21 at 21:42; Stop 10/02/21 at 21:43; Status DC Nitroglycerin (Nitroglycerin) 200 mcg STK-MED ONCE .ROUTE ; Start 10/02/21 at 21:43; Stop 10/02/21 at 21:43; Status DC Tirofiban/Sodium Chloride 250 ml @ As Directed STK-MED ONCE IV ; Start 10/02/21 at 22:05; Stop 10/02/21 at 22:06; Status DC Atropine Sulfate (ATROPINE 0.5mg SYRINGE) 0.5 mg STK-MED ONCE .ROUTE ; Start 10/02/21 at 22:09; Stop 10/02/21 at 22:10; Status DC Atropine Sulfate (ATROPINE 1mg SYRINGE) 1 mg STK-MED ONCE .ROUTE ; Start 10/02/21 at 22:10; Stop 10/02/21 at 22:10; Status DC Nitroglycerin (Nitroglycerin) 200 mcg 1X ONCE IART Last administered on 10/02/21at 09:58; Start 10/02/21 at 22:30; Stop 10/02/21 at 22:31; Status DC Verapamil HCl (Verapamil) 2.5 mg 1X ONCE IART Last administered on 10/02/21at 22:30; Start 10/02/21 at 22:30; Stop 10/02/21 at 22:31; Status DC Heparin Sodium (Porcine) (Heparin Sodium) 2,500 unit 1X ONCE IART Last administered on 10/02/21at 09:58; Start 10/02/21 at 22:30; Stop 10/02/21 at 22:31; Status DC Heparin Sodium/ Sodium Chloride (HEPARIN for ARTERIAL LINE FLUSH) 1,000 unit 1X ONCE IART Last administered on 10/02/21at 22:25; Start 10/02/21 at 22:30; Stop 10/02/21 at 22:31; Status DC Heparin Sodium/ Sodium Chloride (HEPARIN for ARTERIAL LINE FLUSH) 1,000 unit 1X ONCE IART Last administered on 10/02/21 22:25; Start 10/02/21 at 22:30; Stop 10/02/21 at 22:31; Status DC Midazolam HCl (Versed) 2 mg 1X ONCE IV Last administered on 10/02/21 09:57; Start 10/02/21 at 22:30; Stop 10/02/21 at 22:31; Status DC Fentanyl Citrate (Fentanyl 2ml Vial) 100 mcg 1X ONCE IV Last administered on 10/02/21 09:57; Start 10/02/21 at 22:30; Stop 10/02/21 at 22:31; Status DC Iodixanol (Visipaque 320) 100 ml 1X ONCE IART Last administered on 10/02/21at 22:30; Start 10/02/21 at 22:30; Stop 10/02/21 at 22:31; Status DC Tirofiban/Sodium Chloride 250 ml @ 19.386 mls/ hr CONT PRN IV PER PROTOCOL Last administered on 10/03/21at 06:32; Start 10/02/21 at 22:30; Stop 10/03/21 at 16:29 Lidocaine HCl (Xylocaine-Mpf 1% 2ml Vial) 2 ml 1X ONCE INJ Last administered on 10/02/21 09:57; Start 10/02/21 at 22:30; Stop 10/02/21 at 22:31; Status DC Info (CONTRAST GIVEN -- Rx MONITORING) 1 each PRN DAILY PRN MC SEE COMMENTS; Start 10/02/21 at 22:30; Stop 10/04/21 at 22:29 Prasugrel (Effient) 10 mg STK-MED ONCE .ROUTE ; Start 10/02/21 at 22:30; Stop 10/02/21 at 22:31; Status DC Prasugrel (Effient) 60 mg 1X ONCE PO Last administered on 10/02/21at 22:42; Start 10/02/21 at 22:30; Stop 10/02/21 at 22:34; Status DC Ondansetron HCl (Zofran) 4 mg PRN Q8HRS PRN IVP NAUSEA/VOMITING Last administered on 10/03/21at 07:27; Start 10/02/21 at 22:45; Stop 10/03/21 at 22:44 Morphine Sulfate (Morphine Sulfate) 4 mg PRN Q2HR PRN IVP PAIN; Start 10/02/21 at 22:45; Stop 10/03/21 at 22:44 Nitroglycerin (Nitroglycerin) 200 mcg STK-MED ONCE .ROUTE ; Start 10/02/21 at 22:48; Stop 10/02/21 at 22:48; Status DC Atorvastatin Calcium (Lipitor) 40 mg QHS PO ; Start 10/03/21 at 21:00 Metoprolol Tartrate (Lopressor) 12.5 mg BID PO ; Start 10/03/21 at 09:00 Aspirin (Ecotrin) 81 mg DAILYWBKFT PO ; Start 10/03/21 at 08:00 Prasugrel (Effient) 10 mg DAILYWBKFT PO ; Start 10/03/21 at 08:00 Allergies Allergies: Coded Allergies: No Known Drug Allergies (Unverified , 10/02/21) ROS Review of System GENERAL: No history of weight change, weakness or fevers. SKIN: No bruising, hair changes or rashes. EYES: No blurred, double or loss of vision. NOSE AND THROAT: No history of nosebleeds, hoarseness or sore throat. HEART: Chest pain LUNGS: Denies cough, hemoptysis, wheezing or shortness of breath. GASTROINTESTINAL: Denies nausea, vomiting, abdominal pain. GENITOURINARY: Denies dysuria, frequency, urgency, hematuria. NEUROLOGIC: Denies history of numbness, tingling, tremor or weakness. PSYCHIATRIC: Denies anxiety, denies depression. ENDOCRINE: No history of heat or cold intolerance, polyuria or polydipsia. EXTREMITIES: Denies muscle weakness, joint pain, pain on walking or stiffness. Physical Exam Physical Exam General: Alert, Oriented X3, Cooperative, No acute distress HEENT: PERRLA, EOMI Lungs: Clear to auscultation, Normal air movement Heart: RRR, no murmurs Cardiovascular: S1, S2 Abdomen: Normal bowel sounds, Soft, No tenderness Extremities: No clubbing, No cyanosis Skin: No rashes, No significant lesion Neuro: Normal speech, Normal tone, Sensation intact Psych/Mental Status: Mental status NL, Mood NL Vitals Vitals Vital Signs Date Time Temp Pulse Resp B/P (MAP) Pulse Ox O2 Delivery O2 Flow Rate FiO2 10/03/21 06:00 79 13 132/73 (92) 92 Room Air 10/03/21 04:00 99.7 99.7 10/02/21 22:50 2.0 Labs Labs Laboratory Tests Test 10/02/21 19:50 10/02/21 21:36 10/02/21 22:10 10/03/21 02:00 White Blood Count 12.2 x10^3/uL (4.0-11.0) 11.9 x10^3/uL (4.0-11.0) Red Blood Count 5.55 x10^6/uL (4.30-5.70) 5.46 x10^6/uL (4.30-5.70) Hemoglobin 15.9 g/dL (13.0-17.5) 15.5 g/dL (13.0-17.5) Hematocrit 47.6 % (39.0-53.0) 46.6 % (39.0-53.0) Mean Corpuscular Volume 86 fL (79-100) 85 fL (79-100) Mean Corpuscular Hemoglobin 29 pg (25-35) 28 pg (25-35) Mean Corpuscular Hemoglobin Concent 33 g/dL (31-37) 33 g/dL (31-37) Red Cell Distribution Width 14.1 % (11.5-14.5) 14.0 % (11.5-14.5) Platelet Count 215 x10^3/uL (140-400) 220 x10^3/uL (140-400) Neutrophils (%) (Auto) 73 % (31-73) 65 % (31-73) Lymphocytes (%) (Auto) 20 % (24-48) 26 % (24-48) Monocytes (%) (Auto) 5 % (0-9) 8 % (0-9) Eosinophils (%) (Auto) 1 % (0-3) 1 % (0-3) Basophils (%) (Auto) 1 % (0-3) 1 % (0-3) Neutrophils # (Auto) 8.9 x10^3/uL (1.8-7.7) 7.7 x10^3/uL (1.8-7.7) Lymphocytes # (Auto) 2.5 x10^3/uL (1.0-4.8) 3.1 x10^3/uL (1.0-4.8) Monocytes # (Auto) 0.6 x10^3/uL (0.0-1.1) 1.0 x10^3/uL (0.0-1.1) Eosinophils # (Auto) 0.1 x10^3/uL (0.0-0.7) 0.1 x10^3/uL (0.0-0.7) Basophils # (Auto) 0.1 x10^3/uL (0.0-0.2) 0.1 x10^3/uL (0.0-0.2) Prothrombin Time 13.0 SEC (11.7-14.0) Prothromb Time International Ratio 1.0 (0.8-1.1) Activated Partial Thromboplast Time 30 SEC (24-38) Sodium Level 138 mmol/L (136-145) 140 mmol/L (136-145) Potassium Level 3.5 mmol/L (3.5-5.1) 3.9 mmol/L (3.5-5.1) Chloride Level 101 mmol/L (98-107) 104 mmol/L (98-107) Carbon Dioxide Level 29 mmol/L (21-32) 28 mmol/L (21-32) Anion Gap 8 (6-14) 8 (6-14) Blood Urea Nitrogen 15 mg/dL (8-26) 14 mg/dL (8-26) Creatinine 1.1 mg/dL (0.7-1.3) 0.8 mg/dL (0.7-1.3) Estimated GFR (Cockcroft-Gault) 67.0 96.7 BUN/Creatinine Ratio 14 (6-20) 18 (6-20) Glucose Level 236 mg/dL (70-99) 108 mg/dL (70-99) Calcium Level 8.4 mg/dL (8.5-10.1) 8.4 mg/dL (8.5-10.1) Magnesium Level 1.9 mg/dL (1.8-2.4) Total Bilirubin 0.4 mg/dL (0.2-1.0) 0.4 mg/dL (0.2-1.0) Aspartate Amino Transf (AST/SGOT) 38 U/L (15-37) 56 U/L (15-37) Alanine Aminotransferase (ALT/SGPT) 23 U/L (16-63) 21 U/L (16-63) Alkaline Phosphatase 165 U/L (46-116) 157 U/L (46-116) Troponin I High Sensitivity 3251 ng/L (4-75) 60252 ng/L (4-75) GB-Unx-B-Type Natriuretic Peptide 931 pg/mL (0-124) Total Protein 7.0 g/dL (6.4-8.2) 6.2 g/dL (6.4-8.2) Albumin 3.4 g/dL (3.4-5.0) 3.3 g/dL (3.4-5.0) Albumin/Globulin Ratio 0.9 (1.0-1.7) 1.1 (1.0-1.7) Thyroid Stimulating Hormone (TSH) 2.701 uIU/mL (0.358-3.74) Urine Collection Type Unknown Urine Color (Auto) Light yellow Urine Turbidity Clear Urine pH (Auto) 5.5 (<5.0-8.0) Urine Specific [place] 1.031 (1.000-1.030) Urine Protein (Auto) Negative mg/dL (Negative) Urine Glucose (Auto)(UA) 100 mg/dL (Negative) Urine Ketones (Auto) Negative mg/dL (Negative) Urine Blood (Auto) Negative (Negative) Urine Nitrite Negative (Negative) Urine Bilirubin (Auto) Negative (Negative) Urine Urobilinogen (Auto) Normal mg/dL (Normal) Urine Leukocyte Esterase (Auto) Negative (Negative) Urine RBC 0 /HPF (0-2) Urine WBC Rare /HPF (0-4) Urine Squamous Epithelial Cells Occ /LPF Urine Bacteria 0 /HPF (0-FEW) Urine Mucus Slight /LPF Activated Clotting Time 250 sec (92-181) Laboratory Tests Test 10/02/21 19:50 10/02/21 21:36 10/02/21 22:10 10/03/21 02:00 White Blood Count 12.2 x10^3/uL (4.0-11.0) 11.9 x10^3/uL (4.0-11.0) Red Blood Count 5.55 x10^6/uL (4.30-5.70) 5.46 x10^6/uL (4.30-5.70) Hemoglobin 15.9 g/dL (13.0-17.5) 15.5 g/dL (13.0-17.5) Hematocrit 47.6 % (39.0-53.0) 46.6 % (39.0-53.0) Mean Corpuscular Volume 86 fL (79-100) 85 fL (79-100) Mean Corpuscular Hemoglobin 29 pg (25-35) 28 pg (25-35) Mean Corpuscular Hemoglobin Concent 33 g/dL (31-37) 33 g/dL (31-37) Red Cell Distribution Width 14.1 % (11.5-14.5) 14.0 % (11.5-14.5) Platelet Count 215 x10^3/uL (140-400) 220 x10^3/uL (140-400) Neutrophils (%) (Auto) 73 % (31-73) 65 % (31-73) Lymphocytes (%) (Auto) 20 % (24-48) 26 % (24-48) Monocytes (%) (Auto) 5 % (0-9) 8 % (0-9) Eosinophils (%) (Auto) 1 % (0-3) 1 % (0-3) Basophils (%) (Auto) 1 % (0-3) 1 % (0-3) Neutrophils # (Auto) 8.9 x10^3/uL (1.8-7.7) 7.7 x10^3/uL (1.8-7.7) Lymphocytes # (Auto) 2.5 x10^3/uL (1.0-4.8) 3.1 x10^3/uL (1.0-4.8) Monocytes # (Auto) 0.6 x10^3/uL (0.0-1.1) 1.0 x10^3/uL (0.0-1.1) Eosinophils # (Auto) 0.1 x10^3/uL (0.0-0.7) 0.1 x10^3/uL (0.0-0.7) Basophils # (Auto) 0.1 x10^3/uL (0.0-0.2) 0.1 x10^3/uL (0.0-0.2) Prothrombin Time 13.0 SEC (11.7-14.0) Prothromb Time International Ratio 1.0 (0.8-1.1) Activated Partial Thromboplast Time 30 SEC (24-38) Sodium Level 138 mmol/L (136-145) 140 mmol/L (136-145) Potassium Level 3.5 mmol/L (3.5-5.1) 3.9 mmol/L (3.5-5.1) Chloride Level 101 mmol/L (98-107) 104 mmol/L (98-107) Carbon Dioxide Level 29 mmol/L (21-32) 28 mmol/L (21-32) Anion Gap 8 (6-14) 8 (6-14) Blood Urea Nitrogen 15 mg/dL (8-26) 14 mg/dL (8-26) Creatinine 1.1 mg/dL (0.7-1.3) 0.8 mg/dL (0.7-1.3) Estimated GFR (Cockcroft-Gault) 67.0 96.7 BUN/Creatinine Ratio 14 (6-20) 18 (6-20) Glucose Level 236 mg/dL (70-99) 108 mg/dL (70-99) Calcium Level 8.4 mg/dL (8.5-10.1) 8.4 mg/dL (8.5-10.1) Magnesium Level 1.9 mg/dL (1.8-2.4) Total Bilirubin 0.4 mg/dL (0.2-1.0) 0.4 mg/dL (0.2-1.0) Aspartate Amino Transf (AST/SGOT) 38 U/L (15-37) 56 U/L (15-37) Alanine Aminotransferase (ALT/SGPT) 23 U/L (16-63) 21 U/L (16-63) Alkaline Phosphatase 165 U/L (46-116) 157 U/L (46-116) Troponin I High Sensitivity 3251 ng/L (4-75) 50423 ng/L (4-75) EG-Sfd-D-Type Natriuretic Peptide 931 pg/mL (0-124) Total Protein 7.0 g/dL (6.4-8.2) 6.2 g/dL (6.4-8.2) Albumin 3.4 g/dL (3.4-5.0) 3.3 g/dL (3.4-5.0) Albumin/Globulin Ratio 0.9 (1.0-1.7) 1.1 (1.0-1.7) Thyroid Stimulating Hormone (TSH) 2.701 uIU/mL (0.358-3.74) Urine Collection Type Unknown Urine Color (Auto) Light yellow Urine Turbidity Clear Urine pH (Auto) 5.5 (<5.0-8.0) Urine Specific [place] 1.031 (1.000-1.030) Urine Protein (Auto) Negative mg/dL (Negative) Urine Glucose (Auto)(UA) 100 mg/dL (Negative) Urine Ketones (Auto) Negative mg/dL (Negative) Urine Blood (Auto) Negative (Negative) Urine Nitrite Negative (Negative) Urine Bilirubin (Auto) Negative (Negative) Urine Urobilinogen (Auto) Normal mg/dL (Normal) Urine Leukocyte Esterase (Auto) Negative (Negative) Urine RBC 0 /HPF (0-2) Urine WBC Rare /HPF (0-4) Urine Squamous Epithelial Cells Occ /LPF Urine Bacteria 0 /HPF (0-FEW) Urine Mucus Slight /LPF Activated Clotting Time 250 sec (92-181) Images Images PATIENT: NAVI URRUTIA ACCOUNT: [id number] : 1955 LOCATION: ER AGE: 66 SEX: M EXAM STATUS: PRE ER ORD. PHYSICIAN: SHANE ESTRADA APRN REASON: chest pain PROCEDURE: PORTABLE CHEST 1V XR CHEST 1V 10/02/2021 8:07 PM INDICATION: Chest pain COMPARISON: None available TECHNIQUE: Portable frontal view of the chest is provided. FINDINGS: The cardiomediastinal silhouette is within normal limits. There is mild perihilar interstitial prominence.. There are no significant pleural effusions. There is no pulmonary vascular congestion. No pneumothorax. No suspicious osseous abnormality. IMPRESSION: There is mild perihilar interstitial prominence as may be seen with interstitial pneumonitis of infectious/inflammatory etiology versus developing interstitial edema. Short-term follow-up two-view chest radiograph could be of benefit. VTE Prophylaxis Ordered VTE Prophylaxis Devices: No VTE Pharmacological Prophylaxi: Yes Assessment/Plan Assessment/Plan NSTEMI Hyperglycemia Plan: Consult to cardiology S/P PCI with stents Continue to Tirofibran drip per cardiology Continue aspirin, prasugrel, statin Supportive care FEN - Cardiac diet PPX - Heparin FULL CODE/surrogate decision-maker is his (Luzma Urrutia) Dispo - inpatient for above Justifications for Admission Other Justification JENNIFER VÁSQUEZ MD Oct 03, 2021 08:21
[2021-10-03] MEDS: METOPROLOL TART IMMED RELEASE 25 MG TABLET. PO SCH ×2 (08:52→20:56)
[2021-10-03] MEDS: PRASUGREL 10 MG TABLET. PO SCH (08:52)
[2021-10-03] MEDS: ASPIRIN ENTERIC COATED 81 MG TABLET.DR. PO SCH (08:52)
[2021-10-03] MEDS ORDERED: ONDANSETRON PF 4 MG/2 ML VIAL. IVP PRN (09:30)
[2021-10-03] MEDS ORDERED: MAGNESIUM HYDROXIDE 2,400 MG/30 ML ORAL.SUSP. PO PRN (09:30)
[2021-10-03] MEDS ORDERED: MAG HYDROX/ALUMINUM HYD/SIMETH 30 ML ORAL.SUSP PO PRN (09:30)
[2021-10-03] MEDS ORDERED: CALCIUM CARBONATE 500 MG TAB.CHEW PO PRN (09:30)
[2021-10-03] MEDS ORDERED: ZOLPIDEM 5 MG TABLET. PO PRN (09:30)
[2021-10-03] MEDS ORDERED: ACETAMINOPHEN 325 MG TABLET. PO PRN (09:30)
--- NOTE | 2021-10-03 09:36 | NUR ---
SS following for discharge planning. SS reviewed pt chart and discussed with pt RN. Pt is from home with spouse and is currently on room air. Cardiology following. SS will continue to follow for discharge planning.
[2021-10-03] MEDS ORDERED: HEPARIN for SUB-Q USE 5,000 UNIT/ML VIAL. SQ SCH (09:45)
--- NOTE | 2021-10-03 12:57 | EKG ---
[facility] [address] [place] [address] Test Date: 2021-10-03 Test Time: 10:33:41 Pat Name: NAVI URRUTIA Department: Room: 104 1 Gender: M [employer]: : 1955 Requested By: REBECA RINALDI Order Number: [id number] Reading MD: Measurements Intervals [place] Rate: 71 P: 90 TN: 306 QRS: -20 QRSD: 90 T: 126 QT: 362 QTc: 398 Interpretive Statements SINUS RHYTHM ATRIAL ESCAPE COMPLEX(ES) PROLONGED TN INTERVAL LEFTWARD AXIS CONSIDER LEFT VENTRICULAR HYPERTROPHY QRS(T) CONTOUR ABNORMALITY CONSISTENT WITH INFERIOR INFARCT PROBABLY OLD ST & T ABNORMALITY, CONSIDER LATERAL ISCHEMIA OR LEFT VENTRICULAR STRAIN T ABNORMALITY IN ANTERIOR LEADS ABNORMAL ECG RI6.01 Compared to ECG 10/02/2021 20:34:52 Possible ischemia now present T-wave abnormality now present Right ventricular hypertrophy no longer present Early repolarization no longer present Myocardial infarct finding still present
[2021-10-03 13:32] LABS: BASO # 0.1 x10^3/uL (0.0-0.2); BASO % 1 % (0-3); EOS % 0 % (0-3); HEMATOCRIT 42.9 % (39.0-53.0); HEMOGLOBIN 14.1 g/dL (13.0-17.5); LYMPH # 2.8 x10^3/uL (1.0-4.8); LYMPH % 19 % (24-48); MEAN CORPUSCULAR HEMOGLOBIN 28 pg (25-35); MEAN CORPUSCULAR HGB CONC 33 g/dL (31-37); MEAN CORPUSCULAR VOLUME 86 fL (79-100); MONO # 1.3 x10^3/uL (0.0-1.1); MONO % 9 % (0-9); NEUT # 10.2 x10^3/uL (1.8-7.7); NEUT % 71 % (31-73); PLATELET COUNT 269 x10^3/uL (140-400); RED BLOOD COUNT 4.97 x10^6/uL (4.30-5.70); RED CELL DISTRIBUTION WIDTH 14.1 % (11.5-14.5); WHITE BLOOD COUNT 14.4 x10^3/uL (4.0-11.0)
--- NOTE | 2021-10-03 13:44 | PDOC2 ---
GI CONSULT Date of Service: DATE: 10/03/21 TIME: 13:26 Reason For Consult: GI bleed? HPI: HPI: 66 y/o male s/p NSTEMI and stent placement on Effient and ASA. Today had bloody diarrhea (red) x 1 - "it even grossed me out." No h/o GI bleeding. No reflux/heartburn, dysphagia, n/v, change in appetite, chronic diarrhea, constipation, or melena. Chronic left-sided abdominal pain that can radiate to right side - stable. H/o hernia (?diastasis recti) - past workup for this and pain - "no one does anything about it," and son says people don't believe him. Gained ~60 pounds a few years ago, has lost ~35 since taking himself off of Warfarin, Depakote, propranolol, fluoxetine, and Losartan. EGD "40 years ago" showed "ulcers" - at that time was drinking heavily. Colonoscopy <10 years ago in [place] reportedly normal. Abnormal Cologuard in [place] last year - not addressed, "doctors are stupid" - indicates no agreed-upon next step. No GB or pancreas history. Family reports past imaging showed fatty liver. PMH: PMH: HTN, HLD, DM, A Fib, bipolar, PTSD FH: Family History: No pertinent hx (denies GI cancers) Social History: Smoke: <1 pack per day ALCOHOL: other (heavy in past) Drugs: None ROS: GEN: Denies fevers, chills, sweats HEENT: Denies blurred vision, sore throat CV: Denies chest pain RESP: Denies shortness of air, cough GI: Per HPI : Denies hematuria, dysuria ENDO: +weight loss NEURO: Denies confusion, dizziness MSK: Denies weakness, joint pain/swelling SKIN: Denies jaundice, pruritus Vitals: Vitals: Vital Signs Date Time Temp Pulse Resp B/P (MAP) Pulse Ox O2 Delivery O2 Flow Rate FiO2 10/03/21 12:37 99.0 99.0 10/03/21 12:26 Room Air 10/03/21 11:00 58 15 118/76 (90) 95 10/02/21 22:50 2.0 Labs: Labs: Laboratory Tests Test 10/02/21 19:50 10/02/21 21:36 10/02/21 22:10 10/03/21 02:00 White Blood Count 12.2 x10^3/uL (4.0-11.0) 11.9 x10^3/uL (4.0-11.0) Red Blood Count 5.55 x10^6/uL (4.30-5.70) 5.46 x10^6/uL (4.30-5.70) Hemoglobin 15.9 g/dL (13.0-17.5) 15.5 g/dL (13.0-17.5) Hematocrit 47.6 % (39.0-53.0) 46.6 % (39.0-53.0) Mean Corpuscular Volume 86 fL (79-100) 85 fL (79-100) Mean Corpuscular Hemoglobin 29 pg (25-35) 28 pg (25-35) Mean Corpuscular Hemoglobin Concent 33 g/dL (31-37) 33 g/dL (31-37) Red Cell Distribution Width 14.1 % (11.5-14.5) 14.0 % (11.5-14.5) Platelet Count 215 x10^3/uL (140-400) 220 x10^3/uL (140-400) Neutrophils (%) (Auto) 73 % (31-73) 65 % (31-73) Lymphocytes (%) (Auto) 20 % (24-48) 26 % (24-48) Monocytes (%) (Auto) 5 % (0-9) 8 % (0-9) Eosinophils (%) (Auto) 1 % (0-3) 1 % (0-3) Basophils (%) (Auto) 1 % (0-3) 1 % (0-3) Neutrophils # (Auto) 8.9 x10^3/uL (1.8-7.7) 7.7 x10^3/uL (1.8-7.7) Lymphocytes # (Auto) 2.5 x10^3/uL (1.0-4.8) 3.1 x10^3/uL (1.0-4.8) Monocytes # (Auto) 0.6 x10^3/uL (0.0-1.1) 1.0 x10^3/uL (0.0-1.1) Eosinophils # (Auto) 0.1 x10^3/uL (0.0-0.7) 0.1 x10^3/uL (0.0-0.7) Basophils # (Auto) 0.1 x10^3/uL (0.0-0.2) 0.1 x10^3/uL (0.0-0.2) Prothrombin Time 13.0 SEC (11.7-14.0) Prothromb Time International Ratio 1.0 (0.8-1.1) Activated Partial Thromboplast Time 30 SEC (24-38) Sodium Level 138 mmol/L (136-145) 140 mmol/L (136-145) Potassium Level 3.5 mmol/L (3.5-5.1) 3.9 mmol/L (3.5-5.1) Chloride Level 101 mmol/L (98-107) 104 mmol/L (98-107) Carbon Dioxide Level 29 mmol/L (21-32) 28 mmol/L (21-32) Anion Gap 8 (6-14) 8 (6-14) Blood Urea Nitrogen 15 mg/dL (8-26) 14 mg/dL (8-26) Creatinine 1.1 mg/dL (0.7-1.3) 0.8 mg/dL (0.7-1.3) Estimated GFR (Cockcroft-Gault) 67.0 96.7 BUN/Creatinine Ratio 14 (6-20) 18 (6-20) Glucose Level 236 mg/dL (70-99) 108 mg/dL (70-99) Calcium Level 8.4 mg/dL (8.5-10.1) 8.4 mg/dL (8.5-10.1) Magnesium Level 1.9 mg/dL (1.8-2.4) Total Bilirubin 0.4 mg/dL (0.2-1.0) 0.4 mg/dL (0.2-1.0) Aspartate Amino Transf (AST/SGOT) 38 U/L (15-37) 56 U/L (15-37) Alanine Aminotransferase (ALT/SGPT) 23 U/L (16-63) 21 U/L (16-63) Alkaline Phosphatase 165 U/L (46-116) 157 U/L (46-116) Troponin I High Sensitivity 3251 ng/L (4-75) 32449 ng/L (4-75) [id number]-[id number]-Type Natriuretic Peptide 931 pg/mL (0-124) Total Protein 7.0 g/dL (6.4-8.2) 6.2 g/dL (6.4-8.2) Albumin 3.4 g/dL (3.4-5.0) 3.3 g/dL (3.4-5.0) Albumin/Globulin Ratio 0.9 (1.0-1.7) 1.1 (1.0-1.7) Thyroid Stimulating Hormone (TSH) 2.701 uIU/mL (0.358-3.74) Urine Collection Type Unknown Urine Color (Auto) Light yellow Urine Turbidity Clear Urine pH (Auto) 5.5 (<5.0-8.0) Urine Specific [place] 1.031 (1.000-1.030) Urine Protein (Auto) Negative mg/dL (Negative) Urine Glucose (Auto)(UA) 100 mg/dL (Negative) Urine Ketones (Auto) Negative mg/dL (Negative) Urine Blood (Auto) Negative (Negative) Urine Nitrite Negative (Negative) Urine Bilirubin (Auto) Negative (Negative) Urine Urobilinogen (Auto) Normal mg/dL (Normal) Urine Leukocyte Esterase (Auto) Negative (Negative) Urine RBC 0 /HPF (0-2) Urine WBC Rare /HPF (0-4) Urine Squamous Epithelial Cells Occ /LPF Urine Bacteria 0 /HPF (0-FEW) Urine Mucus Slight /LPF Activated Clotting Time 250 sec (92-181) Triglycerides Level 194 mg/dL (0-150) Cholesterol Level 151 mg/dL (0-200) LDL Cholesterol, Calculated 90 mg/dL (0-100) VLDL Cholesterol, Calculated 39 mg/dL (0-40) Non-HDL Cholesterol Calculated 129 mg/dL (0-129) HDL Cholesterol 22 mg/dL (40-60) Cholesterol/HDL Ratio 6.9 Allergies: Coded Allergies: No Known Drug Allergies (Unverified , 10/02/21) Medications: Current Medications Medications (Trade) Dose Ordered Sig/Massiel Route PRN Reason Start Time Stop Time Status Last Admin Dose Admin Aspirin (Óscar Aspirin) 325 mg 1X ONCE PO 10/02/21 20:30 10/02/21 20:31 DC 10/02/21 20:13 Morphine Sulfate (Morphine Sulfate) 4 mg PRN Q15MIN PRN IV/SQ PAIN GREATER THAN 09/1110/02/21 20:00 10/03/21 19:59 10/02/21 20:16 Ondansetron HCl (Zofran) 4 mg 1X ONCE IVP 10/02/21 20:45 10/02/21 20:46 DC 10/02/21 20:15 Nitroglycerin/ Dextrose 250 ml @ 1.5 mls/hr 1X ONCE IV 10/02/21 21:00 10/03/21 08:55 DC 10/02/21 20:53 Fentanyl Citrate (Fentanyl 2ml Vial) 50 mcg 1X ONCE IVP 10/02/21 21:15 10/02/21 21:16 DC 10/02/21 21:06 Heparin Sodium (Porcine) (Heparin Sodium) 4,000 unit 1X ONCE IV 10/02/21 21:15 10/02/21 21:17 DC 10/02/21 21:22 Nitroglycerin (Nitroglycerin) 200 mcg 1X ONCE IART 10/02/21 22:30 10/02/21 22:31 DC 10/02/21 09:58 Verapamil HCl (Verapamil) 2.5 mg 1X ONCE IART 10/02/21 22:30 10/02/21 22:31 DC 10/02/21 22:30 Heparin Sodium (Porcine) (Heparin Sodium) 2,500 unit 1X ONCE IART 10/02/21 22:30 10/02/21 22:31 DC 10/02/21 09:58 Heparin Sodium/ Sodium Chloride (HEPARIN for ARTERIAL LINE FLUSH) 1,000 unit 1X ONCE IART 10/02/21 22:30 10/02/21 22:31 DC 10/02/21 22:25 Heparin Sodium/ Sodium Chloride (HEPARIN for ARTERIAL LINE FLUSH) 1,000 unit 1X ONCE IART 10/02/21 22:30 10/02/21 22:31 DC 10/02/21 22:25 Midazolam HCl (Versed) 2 mg 1X ONCE IV 10/02/21 22:30 10/02/21 22:31 DC 10/02/21 09:57 Fentanyl Citrate (Fentanyl 2ml Vial) 100 mcg 1X ONCE IV 10/02/21 22:30 10/02/21 22:31 DC 10/02/21 09:57 Iodixanol (Visipaque 320) 100 ml 1X ONCE IART 10/02/21 22:30 10/02/21 22:31 DC 10/02/21 22:30 Tirofiban/Sodium Chloride 250 ml @ 19.386 mls/ hr CONT PRN IV PER PROTOCOL 10/02/21 22:30 10/03/21 16:29 10/03/21 06:32 Lidocaine HCl (Xylocaine-Mpf 1% 2ml Vial) 2 ml 1X ONCE INJ 10/02/21 22:30 10/02/21 22:31 DC 10/02/21 09:57 Prasugrel (Effient) 60 mg 1X ONCE PO 10/02/21 22:30 10/02/21 22:34 DC 10/02/21 22:42 Ondansetron HCl (Zofran) 4 mg PRN Q8HRS PRN IVP NAUSEA/VOMITING 10/02/21 22:45 10/03/21 22:44 10/03/21 07:27 Metoprolol Tartrate (Lopressor) 12.5 mg BID PO 10/03/21 09:00 10/03/21 08:52 Aspirin (Ecotrin) 81 mg DAILYWBKFT PO 10/03/21 08:00 10/03/21 08:52 Prasugrel (Effient) 10 mg DAILYWBKFT PO 10/03/21 08:00 10/03/21 08:52 Imaging: Imaging: CXR IMPRESSION: There is mild perihilar interstitial prominence as may be seen with interstitial pneumonitis of infectious/inflammatory etiology versus developing interstitial edema. Short-term follow-up two-view chest radiograph could be of benefit. Cath Conclusion 1. Acute on chronic diastolic heart failure in the setting of high risk non-ST elevation [place] 2. One-vessel coronary artery disease, status post PCI of the proximal and mid RCA with implantation of overlapping 4.5 x 22 and 4.0 x 38 mm drug-eluting stents with intravascular ultrasound guidance. PE: GEN: NAD HEENT: Atraumatic, PERRL LUNGS: diminished anteriorly HEART: RRR ABD: NABS, S/ND, tender quite laterally left mid abdomen EXTREMITY: No edema SKIN: No rashes, no jaundice NEURO/PSYCH: A & O 3 A/P: A/P: NSTEMI s/p stent Hematochezia Chronic abdominal pain - unchanged Remote h/o "ulcer" CRC screen - reports normal past colonoscopy, abnormal [place] guard (both in [place]) H/o fatty liver H/o non-compliance -- Difficult situation w/ fresh TX and stent. ?ischemic/diverticular source? Awaiting Hgb recheck - follow labs, observe for recurrent bleeding. Keep to clear liquids for now. 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 VIRGIL SHIELDS Oct 03, 2021 13:44
--- NOTE | 2021-10-03 16:55 | RAD ---
XR CHEST 1V INDICATION: Shortness of breath. COMPARISON STUDY: 10/02/2021. FINDINGS: Lungs: Normal lung volume. Improving trace interstitial prominence. Pleura: No pleural effusion or pneumothorax. Heart and Mediastinum: Stable cardiomediastinal silhouette and great vessels. IMPRESSION: Improving trace interstitial prominence. Electronically signed by: Neftaly Bennett MD (10/03/2021 4:52 PM) [id number]
[2021-10-03] MEDS: PANTOPRAZOLE 40 MG TABLET.DR. PO SCH (17:06)
--- NOTE | 2021-10-03 18:23 | CARD ---
MR#: [id number] Date of Study: 10/03/2021 Ordering Physician: REBECA RINALDI, Referring Physician: REBECA RINALDI Tech: Samson Garcia [facility] APPROVED REPORT EXAM: Two-dimensional and M-mode echocardiogram with Doppler and color Doppler. Other Information Quality : AverageHR: 71bpm Rhythm : NSR INDICATION STEMI RISK FACTORS Hypertension Obesity Hyperlipidemia Diabetes 2D DIMENSIONS Left Atrium(2D)3.2 (1.6-4.0cm)IVSd1.2 (0.7-1.1cm) Aortic Root(2D)3.6 (2.0-3.7cm)LVDd4.6 (3.9-5.9cm) LVOT Diameter2.3 (1.8-2.4cm)PWd1.4 (0.7-1.1cm) LVDs3.3 (2.5-4.0cm)FS (%) 28.0 % SV52.4 ml Aortic Valve AoV Peak Yaniv.110.1cm/sAoV VTI20.0cm AO Peak GR.4.9mmHgLVOT VTI 13.63cm AO Mean GR.3mmHg Mitral Valve MV E Gxcpapaq28.3cm/sMV DECEL [id number] MV A Xuunezaj15.8cm/sE/A Ratio1.4 TDI Lateral E' P. V6.37cm/sMedial E' P. V5.02cm/s E/Lateral E'12.3E/Medial E'15.6 Pulmonary Valve PV Peak Hrnnythn04.5cm/s Tricuspid Valve TR P. [id number]/sTR Peak Gr.10mmHg LEFT VENTRICLE The left ventricle is normal size. There is mild concentric left ventricular hypertrophy. The left ve ntricular systolic function is normal and the ejection fraction is within normal range. LV ejection f raction is 50 to 55%. There is normal LV segmental wall motion. No left ventricle thrombus noted on t his study. There is no ventricular septal defect visualized. There is no left ventricular aneurysm. T here is no mass noted in the left ventricle. RIGHT VENTRICLE The right ventricle is normal size. There is normal right ventricular wall thickness. The right ventr icular systolic function is normal. ATRIA The left atrium size is normal. The right atrium size is normal. AORTIC VALVE The aortic valve is normal in structure and function. Doppler and Color Flow revealed no significant aortic regurgitation. There is no significant aortic valvular stenosis. There is no aortic valvular v egetation. MITRAL VALVE The mitral valve is normal in structure and function. There is no evidence of mitral valve prolapse. There is no mitral valve stenosis. Doppler and Color-flow revealed trace mitral regurgitation. TRICUSPID VALVE The tricuspid valve is normal in structure and function. Doppler and Color Flow revealed no tricuspid valve regurgitation noted. There is no tricuspid valve prolapse or vegetation. There is no tricuspid valve stenosis. PULMONIC VALVE The pulmonic valve is not well seen. Doppler and Color Flow revealed no pulmonic valvular regurgitati on. There is no pulmonic valvular stenosis. GREAT VESSELS The aortic root is normal in size. The ascending aorta is normal in size. The pulmonary artery is nor mal. The IVC is normal in size and collapses >50% with inspiration. PERICARDIAL EFFUSION There is no pleural effusion. There is no evidence of significant pericardial effusion. Critical Notification Critical Value: No <Conclusion> The left ventricle is normal size. The left ventricular systolic function is normal and the ejection fraction is within normal range. LV ejection fraction is 50 to 55%. There is normal LV segmental wall motion. There is mild concentric left ventricular hypertrophy. Doppler and Color Flow revealed no significant aortic regurgitation. There is no significant aortic valvular stenosis. Doppler and Color-flow revealed trace mitral regurgitation. Doppler and Color Flow revealed no tricuspid valve regurgitation noted. Signed by : Omar Morrison MD Electronically Approved : 10/03/2021 18:22:53
[2021-10-03] MEDS ORDERED: ATORVASTATIN CALCIUM 40 MG TABLET. PO SCH (21:00)
[2021-10-04] VITALS: BP 115/76
[2021-10-04 01:09] LABS: HEMOGLOBIN A1C 7.2 % (4.8-5.6)
[2021-10-04 03:00] VITALS: BP 115/76
[2021-10-04 04:20] LABS: HEMATOCRIT 38.5 % (39.0-53.0); HEMOGLOBIN 12.9 g/dL (13.0-17.5); RED BLOOD COUNT 4.51 x10^6/uL (4.30-5.70); RED CELL DISTRIBUTION WIDTH 14.2 % (11.5-14.5)
[2021-10-04 04:24] VITALS: BP 127/74
[2021-10-04 05:25] VITALS: BP 138/67
--- NOTE | 2021-10-04 05:30 | NUR ---
Pt arrived to unit per wheelchair, pt ambulated to bed vs obtained and stable tele monitor applied to pt. Assessment completed will resume care and continue to monitor pt. Pt oriented to surroundings and call light placed in reach. Pt denied pain at this time.
[2021-10-04] MEDS: PANTOPRAZOLE 40 MG TABLET.DR. PO SCH (05:39)
[2021-10-04 07:00] VITALS: BP 123/71
[2021-10-04 08:45] LABS: HEMATOCRIT 40.7 % (39.0-53.0); HEMOGLOBIN 13.2 g/dL (13.0-17.5); RED BLOOD COUNT 4.68 x10^6/uL (4.30-5.70); RED CELL DISTRIBUTION WIDTH 13.9 % (11.5-14.5); WHITE BLOOD COUNT 12.2 x10^3/uL (4.0-11.0)
[2021-10-04] MEDS: ASPIRIN ENTERIC COATED 81 MG TABLET.DR. PO SCH (08:59)
[2021-10-04] MEDS: METOPROLOL TART IMMED RELEASE 25 MG TABLET. PO SCH (08:59)
[2021-10-04] MEDS: PRASUGREL 10 MG TABLET. PO SCH (08:59)
[2021-10-04 10:49] VITALS: BP 128/64
--- NOTE | 2021-10-04 11:07 | PDOC ---
PROGRESS NOTES Date of Service: DATE: 10/04/21 TIME: 11:07 Subjective Subjective Denied any CP or SOA Objective Objective Vital Signs Date Time Temp Pulse Resp B/P (MAP) Pulse Ox O2 Delivery O2 Flow Rate FiO2 10/04/21 10:49 97.8 63 18 128/64 (85) 97 Room Air 97.8 10/04/21 03:00 2.0 Intake and Output 10/04/21 07:00 Intake Total 360 ml Output Total 150 ml Balance 210 ml Intake Oral 360 ml Output Urine Total 150 ml # Voids 2 # Bowel Movements 3 Assessment Assessment 1. High risk NSTEMI: S/P PCI/SHERINE to proximal and mid RCA 2. CAD: as above 3. HTN: controlled 4. HLP 5. DM2: per PCP 6. PAFIB: unclear details Recommendations 1. 2D echo showed EF 50-55% 2. Continue DAPT 3. Secondary prevention measures Plan Plan of Care Problems Medical Problems: (1) Chest pain Status: Acute (2) Smoking addiction Status: Acute (3) STEMI (ST elevation myocardial infarction) Status: Acute Comment Review of Relevant I have reviewed the following items cleopatra (where applicable) has been applied. Labs Laboratory Tests Test 10/03/21 12:46 10/04/21 03:45 10/04/21 08:25 White Blood Count 14.4 x10^3/uL (4.0-11.0) 13.0 x10^3/uL (4.0-11.0) 12.2 x10^3/uL (4.0-11.0) Red Blood Count 4.97 x10^6/uL (4.30-5.70) 4.51 x10^6/uL (4.30-5.70) 4.68 x10^6/uL (4.30-5.70) Hemoglobin 14.1 g/dL (13.0-17.5) 12.9 g/dL (13.0-17.5) 13.2 g/dL (13.0-17.5) Hematocrit 42.9 % (39.0-53.0) 38.5 % (39.0-53.0) 40.7 % (39.0-53.0) Mean Corpuscular Volume 86 fL (79-100) 85 fL (79-100) 87 fL (79-100) Mean Corpuscular Hemoglobin 28 pg (25-35) 29 pg (25-35) 28 pg (25-35) Mean Corpuscular Hemoglobin Concent 33 g/dL (31-37) 33 g/dL (31-37) 32 g/dL (31-37) Red Cell Distribution Width 14.1 % (11.5-14.5) 14.2 % (11.5-14.5) 13.9 % (11.5-14.5) Platelet Count 269 x10^3/uL (140-400) 221 x10^3/uL (140-400) 210 x10^3/uL (140-400) Neutrophils (%) (Auto) 71 % (31-73) Lymphocytes (%) (Auto) 19 % (24-48) Monocytes (%) (Auto) 9 % (0-9) Eosinophils (%) (Auto) 0 % (0-3) Basophils (%) (Auto) 1 % (0-3) Neutrophils # (Auto) 10.2 x10^3/uL (1.8-7.7) Lymphocytes # (Auto) 2.8 x10^3/uL (1.0-4.8) Monocytes # (Auto) 1.3 x10^3/uL (0.0-1.1) Eosinophils # (Auto) 0.0 x10^3/uL (0.0-0.7) Basophils # (Auto) 0.1 x10^3/uL (0.0-0.2) Medications Current Medications Atorvastatin Calcium (Lipitor) 40 mg QHS PO Last administered on 10/03/21at 20:56; Start 10/03/21 at 21:00 Pantoprazole Sodium (Protonix) 40 mg DAILYAC PO Last administered on 10/04/21at 05:39; Start 10/03/21 at 16:30 Vitals/I & O Vital Sign - Last 24 Hours 10/03/21 10/03/21 10/03/21 10/03/21 12:00 12:26 12:37 13:00 Temp 99.0 99.0 Pulse 62 72 Resp 23 20 B/P (MAP) 115/71 (86) 116/79 (91) Pulse Ox 96 95 O2 Delivery Room Air Room Air Room Air 10/03/21 10/03/21 10/03/21 4/1/22 14:00 15:00 16:00 16:01 Pulse 66 72 68 Resp 10 19 20 B/P (MAP) 120/74 (89) 118/85 (96) 116/72 (87) Pulse Ox 95 94 93 O2 Delivery Room Air Room Air Room Air 10/03/21 10/03/21 10/03/21 10/03/21 17:00 18:00 20:00 20:31 Temp 98.6 98.6 Pulse 68 68 73 Resp 13 17 18 B/P (MAP) 124/74 (91) 137/76 (96) 121/62 (81) Pulse Ox 93 95 93 O2 Delivery Room Air Room Air Room Air Room Air 10/03/21 10/04/21 10/04/21 10/04/21 20:56 00:00 03:00 04:24 Temp 98.6 99.0 98.6 99.0 Pulse 73 67 67 68 Resp 17 17 B/P (MAP) 121/62 115/76 (89) 115/76 (89) 127/74 (91) Pulse Ox 93 93 94 O2 Delivery Room Air Room Air Room Air O2 Flow Rate 2.0 10/04/21 10/04/21 10/04/21 10/04/21 05:25 05:40 07:00 08:59 Temp 98.4 97.4 98.4 97.4 Pulse 71 64 64 Resp 18 18 B/P (MAP) 138/67 (90) 123/71 (88) 123/71 Pulse Ox 94 97 O2 Delivery Room Air Room Air Room Air 10/04/21 10:49 Temp 97.8 97.8 Pulse 63 Resp 18 B/P (MAP) 128/64 (85) Pulse Ox 97 O2 Delivery Room Air Intake and Output 10/03/21 10/03/21 10/04/21 15:00 23:00 07:00 Intake Total 120 ml 240 ml Output Total 150 ml Balance -30 ml 240 ml FILEMON MARTEL MD Oct 04, 2021 11:07
--- NOTE | 2021-10-04 11:52 | PDOC ---
G I PROGRESS NOTE Reason for Follow-up Rectal bleed s/p stents Objective Diarrhea to day but no further bleeding Physical Exam Lungs clear CV S1 S2 ABD +BS, soft, nontender Review of Relevant I have reviewed the following items cleopatra (where applicable) has been applied. Labs Laboratory Tests Test 10/02/21 19:50 10/02/21 21:36 10/02/21 22:10 10/03/21 02:00 White Blood Count 12.2 x10^3/uL (4.0-11.0) 11.9 x10^3/uL (4.0-11.0) Red Blood Count 5.55 x10^6/uL (4.30-5.70) 5.46 x10^6/uL (4.30-5.70) Hemoglobin 15.9 g/dL (13.0-17.5) 15.5 g/dL (13.0-17.5) Hematocrit 47.6 % (39.0-53.0) 46.6 % (39.0-53.0) Mean Corpuscular Volume 86 fL (79-100) 85 fL (79-100) Mean Corpuscular Hemoglobin 29 pg (25-35) 28 pg (25-35) Mean Corpuscular Hemoglobin Concent 33 g/dL (31-37) 33 g/dL (31-37) Red Cell Distribution Width 14.1 % (11.5-14.5) 14.0 % (11.5-14.5) Platelet Count 215 x10^3/uL (140-400) 220 x10^3/uL (140-400) Neutrophils (%) (Auto) 73 % (31-73) 65 % (31-73) Lymphocytes (%) (Auto) 20 % (24-48) 26 % (24-48) Monocytes (%) (Auto) 5 % (0-9) 8 % (0-9) Eosinophils (%) (Auto) 1 % (0-3) 1 % (0-3) Basophils (%) (Auto) 1 % (0-3) 1 % (0-3) Neutrophils # (Auto) 8.9 x10^3/uL (1.8-7.7) 7.7 x10^3/uL (1.8-7.7) Lymphocytes # (Auto) 2.5 x10^3/uL (1.0-4.8) 3.1 x10^3/uL (1.0-4.8) Monocytes # (Auto) 0.6 x10^3/uL (0.0-1.1) 1.0 x10^3/uL (0.0-1.1) Eosinophils # (Auto) 0.1 x10^3/uL (0.0-0.7) 0.1 x10^3/uL (0.0-0.7) Basophils # (Auto) 0.1 x10^3/uL (0.0-0.2) 0.1 x10^3/uL (0.0-0.2) Prothrombin Time 13.0 SEC (11.7-14.0) Prothromb Time International Ratio 1.0 (0.8-1.1) Activated Partial Thromboplast Time 30 SEC (24-38) Sodium Level 138 mmol/L (136-145) 140 mmol/L (136-145) Potassium Level 3.5 mmol/L (3.5-5.1) 3.9 mmol/L (3.5-5.1) Chloride Level 101 mmol/L (98-107) 104 mmol/L (98-107) Carbon Dioxide Level 29 mmol/L (21-32) 28 mmol/L (21-32) Anion Gap 8 (6-14) 8 (6-14) Blood Urea Nitrogen 15 mg/dL (8-26) 14 mg/dL (8-26) Creatinine 1.1 mg/dL (0.7-1.3) 0.8 mg/dL (0.7-1.3) Estimated GFR (Cockcroft-Gault) 67.0 96.7 BUN/Creatinine Ratio 14 (6-20) 18 (6-20) Glucose Level 236 mg/dL (70-99) 108 mg/dL (70-99) Calcium Level 8.4 mg/dL (8.5-10.1) 8.4 mg/dL (8.5-10.1) Magnesium Level 1.9 mg/dL (1.8-2.4) Total Bilirubin 0.4 mg/dL (0.2-1.0) 0.4 mg/dL (0.2-1.0) Aspartate Amino Transf (AST/SGOT) 38 U/L (15-37) 56 U/L (15-37) Alanine Aminotransferase (ALT/SGPT) 23 U/L (16-63) 21 U/L (16-63) Alkaline Phosphatase 165 U/L (46-116) 157 U/L (46-116) Troponin I High Sensitivity 3251 ng/L (4-75) 52121 ng/L (4-75) OA-Sog-W-Type Natriuretic Peptide 931 pg/mL (0-124) Total Protein 7.0 g/dL (6.4-8.2) 6.2 g/dL (6.4-8.2) Albumin 3.4 g/dL (3.4-5.0) 3.3 g/dL (3.4-5.0) Albumin/Globulin Ratio 0.9 (1.0-1.7) 1.1 (1.0-1.7) Thyroid Stimulating Hormone (TSH) 2.701 uIU/mL (0.358-3.74) Urine Collection Type Unknown Urine Color (Auto) Light yellow Urine Turbidity Clear Urine pH (Auto) 5.5 (<5.0-8.0) Urine Specific [place] 1.031 (1.000-1.030) Urine Protein (Auto) Negative mg/dL (Negative) Urine Glucose (Auto)(UA) 100 mg/dL (Negative) Urine Ketones (Auto) Negative mg/dL (Negative) Urine Blood (Auto) Negative (Negative) Urine Nitrite Negative (Negative) Urine Bilirubin (Auto) Negative (Negative) Urine Urobilinogen (Auto) Normal mg/dL (Normal) Urine Leukocyte Esterase (Auto) Negative (Negative) Urine RBC 0 /HPF (0-2) Urine WBC Rare /HPF (0-4) Urine Squamous Epithelial Cells Occ /LPF Urine Bacteria 0 /HPF (0-FEW) Urine Mucus Slight /LPF Activated Clotting Time 250 sec (92-181) Hemoglobin A1c 7.2 % (4.8-5.6) Triglycerides Level 194 mg/dL (0-150) Cholesterol Level 151 mg/dL (0-200) LDL Cholesterol, Calculated 90 mg/dL (0-100) VLDL Cholesterol, Calculated 39 mg/dL (0-40) Non-HDL Cholesterol Calculated 129 mg/dL (0-129) HDL Cholesterol 22 mg/dL (40-60) Cholesterol/HDL Ratio 6.9 Test 10/03/21 12:46 10/04/21 03:45 10/04/21 08:25 White Blood Count 14.4 x10^3/uL (4.0-11.0) 13.0 x10^3/uL (4.0-11.0) 12.2 x10^3/uL (4.0-11.0) Red Blood Count 4.97 x10^6/uL (4.30-5.70) 4.51 x10^6/uL (4.30-5.70) 4.68 x10^6/uL (4.30-5.70) Hemoglobin 14.1 g/dL (13.0-17.5) 12.9 g/dL (13.0-17.5) 13.2 g/dL (13.0-17.5) Hematocrit 42.9 % (39.0-53.0) 38.5 % (39.0-53.0) 40.7 % (39.0-53.0) Mean Corpuscular Volume 86 fL (79-100) 85 fL (79-100) 87 fL (79-100) Mean Corpuscular Hemoglobin 28 pg (25-35) 29 pg (25-35) 28 pg (25-35) Mean Corpuscular Hemoglobin Concent 33 g/dL (31-37) 33 g/dL (31-37) 32 g/dL (31-37) Red Cell Distribution Width 14.1 % (11.5-14.5) 14.2 % (11.5-14.5) 13.9 % (11.5-14.5) Platelet Count 269 x10^3/uL (140-400) 221 x10^3/uL (140-400) 210 x10^3/uL (140-400) Neutrophils (%) (Auto) 71 % (31-73) Lymphocytes (%) (Auto) 19 % (24-48) Monocytes (%) (Auto) 9 % (0-9) Eosinophils (%) (Auto) 0 % (0-3) Basophils (%) (Auto) 1 % (0-3) Neutrophils # (Auto) 10.2 x10^3/uL (1.8-7.7) Lymphocytes # (Auto) 2.8 x10^3/uL (1.0-4.8) Monocytes # (Auto) 1.3 x10^3/uL (0.0-1.1) Eosinophils # (Auto) 0.0 x10^3/uL (0.0-0.7) Basophils # (Auto) 0.1 x10^3/uL (0.0-0.2) Laboratory Tests Test 10/03/21 12:46 10/04/21 03:45 10/04/21 08:25 White Blood Count 14.4 x10^3/uL (4.0-11.0) 13.0 x10^3/uL (4.0-11.0) 12.2 x10^3/uL (4.0-11.0) Red Blood Count 4.97 x10^6/uL (4.30-5.70) 4.51 x10^6/uL (4.30-5.70) 4.68 x10^6/uL (4.30-5.70) Hemoglobin 14.1 g/dL (13.0-17.5) 12.9 g/dL (13.0-17.5) 13.2 g/dL (13.0-17.5) Hematocrit 42.9 % (39.0-53.0) 38.5 % (39.0-53.0) 40.7 % (39.0-53.0) Mean Corpuscular Volume 86 fL (79-100) 85 fL (79-100) 87 fL (79-100) Mean Corpuscular Hemoglobin 28 pg (25-35) 29 pg (25-35) 28 pg (25-35) Mean Corpuscular Hemoglobin Concent 33 g/dL (31-37) 33 g/dL (31-37) 32 g/dL (31-37) Red Cell Distribution Width 14.1 % (11.5-14.5) 14.2 % (11.5-14.5) 13.9 % (11.5-14.5) Platelet Count 269 x10^3/uL (140-400) 221 x10^3/uL (140-400) 210 x10^3/uL (140-400) Neutrophils (%) (Auto) 71 % (31-73) Lymphocytes (%) (Auto) 19 % (24-48) Monocytes (%) (Auto) 9 % (0-9) Eosinophils (%) (Auto) 0 % (0-3) Basophils (%) (Auto) 1 % (0-3) Neutrophils # (Auto) 10.2 x10^3/uL (1.8-7.7) Lymphocytes # (Auto) 2.8 x10^3/uL (1.0-4.8) Monocytes # (Auto) 1.3 x10^3/uL (0.0-1.1) Eosinophils # (Auto) 0.0 x10^3/uL (0.0-0.7) Basophils # (Auto) 0.1 x10^3/uL (0.0-0.2) Medications Current Medications Aspirin (Óscar Aspirin) 325 mg 1X ONCE PO Last administered on 10/02/21at 20:13; Start 10/02/21 at 20:30; Stop 10/02/21 at 20:31; Status DC Nitroglycerin (Nitrostat) 0.4 mg PRN Q5MIN PRN SL CP RATING > 1/10; Start 10/02/21 at 20:00; Stop 10/03/21 at 19:59; Status DC Morphine Sulfate (Morphine Sulfate) 4 mg PRN Q15MIN PRN IV/SQ PAIN GREATER THAN 3/10 Last administered on 10/02/21at 20:16; Start 10/02/21 at 20:00; Stop 10/03/21 at 19:59; Status DC Ondansetron HCl (Zofran) 4 mg 1X ONCE IVP Last administered on 10/02/21at 20:15; Start 10/02/21 at 20:45; Stop 10/02/21 at 20:46; Status DC Ondansetron HCl (Zofran) 4 mg STK-MED ONCE .ROUTE ; Start 10/02/21 at 20:12; Stop 10/02/21 at 20:13; Status DC Nitroglycerin/ Dextrose 250 ml @ 1.5 mls/hr 1X ONCE IV Last administered on 10/02/21at 20:53; Start 10/02/21 at 21:00; Stop 10/03/21 at 08:55; Status DC Nitroglycerin/ Dextrose 250 ml @ 1.5 mls/hr 1X ONCE IV ; Start 10/02/21 at 20:45; Stop 10/02/21 at 20:46; Status DC Heparin Sodium/ Dextrose 250 ml @ 12.924 mls/ hr CONT PRN IV PER PROTOCOL; Start 10/02/21 at 20:45; Stop 10/02/21 at 21:15; Status DC Heparin Sodium (Porcine) (Heparin Sodium) 2,700 unit PRN Q6HRS PRN IV FOR UFH LEVEL LESS THAN 0.2; Start 10/02/21 at 20:45; Stop 10/02/21 at 21:15; Status DC Fentanyl Citrate (Fentanyl 2ml Vial) 100 mcg STK-MED ONCE .ROUTE ; Start 10/02/21 at 20:47; Stop 10/02/21 at 20:48; Status DC Fentanyl Citrate (Fentanyl 2ml Vial) 50 mcg 1X ONCE IVP Last administered on 10/02/21at 21:06; Start 10/02/21 at 21:15; Stop 10/02/21 at 21:16; Status DC Heparin Sodium (Porcine) (Heparin Sodium) 4,000 unit 1X ONCE IV Last administered on 10/02/21at 21:22; Start 10/02/21 at 21:15; Stop 10/02/21 at 21:17; Status DC Iodixanol (Visipaque 320) 100 ml STK-MED ONCE .ROUTE ; Start 10/02/21 at 21:37; Stop 10/02/21 at 21:37; Status DC Lidocaine HCl (Lidocaine 1% 20ml Vial) 20 ml STK-MED ONCE .ROUTE ; Start 10/02/21 at 21:37; Stop 10/02/21 at 21:37; Status DC Heparin Sodium/ Sodium Chloride 1,500 ml @ As Directed STK-MED ONCE .ROUTE ; Start 10/02/21 at 21:37; Stop 10/02/21 at 21:37; Status DC Fentanyl Citrate (Fentanyl 2ml Vial) 100 mcg STK-MED ONCE .ROUTE ; Start 10/02/21 at 21:42; Stop 10/02/21 at 21:42; Status DC Midazolam HCl (Versed) 2 mg STK-MED ONCE .ROUTE ; Start 10/02/21 at 21:42; Stop 10/02/21 at 21:43; Status DC Heparin Sodium (Porcine) (Heparin Sodium) 10,000 unit STK-MED ONCE .ROUTE ; Start 10/02/21 at 21:42; Stop 10/02/21 at 21:43; Status DC Verapamil HCl (Verapamil) 5 mg STK-MED ONCE .ROUTE ; Start 10/02/21 at 21:42; Stop 10/02/21 at 21:43; Status DC Nitroglycerin (Nitroglycerin) 200 mcg STK-MED ONCE .ROUTE ; Start 10/02/21 at 21:43; Stop 10/02/21 at 21:43; Status DC Tirofiban/Sodium Chloride 250 ml @ As Directed STK-MED ONCE IV ; Start 10/02/21 at 22:05; Stop 10/02/21 at 22:06; Status DC Atropine Sulfate (ATROPINE 0.5mg SYRINGE) 0.5 mg STK-MED ONCE .ROUTE ; Start 10/02/21 at 22:09; Stop 10/02/21 at 22:10; Status DC Atropine Sulfate (ATROPINE 1mg SYRINGE) 1 mg STK-MED ONCE .ROUTE ; Start 10/02/21 at 22:10; Stop 10/02/21 at 22:10; Status DC Nitroglycerin (Nitroglycerin) 200 mcg 1X ONCE IART Last administered on 10/02/21at 09:58; Start 10/02/21 at 22:30; Stop 10/02/21 at 22:31; Status DC Verapamil HCl (Verapamil) 2.5 mg 1X ONCE IART Last administered on 10/02/21at 22:30; Start 10/02/21 at 22:30; Stop 10/02/21 at 22:31; Status DC Heparin Sodium (Porcine) (Heparin Sodium) 2,500 unit 1X ONCE IART Last administered on 10/02/21at 09:58; Start 10/02/21 at 22:30; Stop 10/02/21 at 22:31; Status DC Heparin Sodium/ Sodium Chloride (HEPARIN for ARTERIAL LINE FLUSH) 1,000 unit 1X ONCE IART Last administered on 10/02/21at 22:25; Start 10/02/21 at 22:30; Stop 10/02/21 at 22:31; Status DC Heparin Sodium/ Sodium Chloride (HEPARIN for ARTERIAL LINE FLUSH) 1,000 unit 1X ONCE IART Last administered on 10/02/21at 22:25; Start 10/02/21 at 22:30; Stop 10/02/21 at 22:31; Status DC Midazolam HCl (Versed) 2 mg 1X ONCE IV Last administered on 10/02/21at 09:57; Start 10/02/21 at 22:30; Stop 10/02/21 at 22:31; Status DC Fentanyl Citrate (Fentanyl 2ml Vial) 100 mcg 1X ONCE IV Last administered on 10/02/21at 09:57; Start 10/02/21 at 22:30; Stop 10/02/21 at 22:31; Status DC Iodixanol (Visipaque 320) 100 ml 1X ONCE IART Last administered on 10/02/21at 22:30; Start 10/02/21 at 22:30; Stop 10/02/21 at 22:31; Status DC Tirofiban/Sodium Chloride 250 ml @ 19.386 mls/ hr CONT PRN IV PER PROTOCOL Last administered on 10/03/21at 06:32; Start 10/02/21 at 22:30; Stop 10/03/21 at 16:29; Status DC Lidocaine HCl (Xylocaine-Mpf 1% 2ml Vial) 2 ml 1X ONCE INJ Last administered on 10/02/21at 09:57; Start 10/02/21 at 22:30; Stop 10/02/21 at 22:31; Status DC Info (CONTRAST GIVEN -- Rx MONITORING) 1 each PRN DAILY PRN MC SEE COMMENTS; Start 10/02/21 at 22:30; Stop 10/04/21 at 22:29 Prasugrel (Effient) 10 mg STK-MED ONCE .ROUTE ; Start 10/02/21 at 22:30; Stop 10/02/21 at 22:31; Status DC Prasugrel (Effient) 60 mg 1X ONCE PO Last administered on 10/02/21at 22:42; Start 10/02/21 at 22:30; Stop 10/02/21 at 22:34; Status DC Ondansetron HCl (Zofran) 4 mg PRN Q8HRS PRN IVP NAUSEA/VOMITING Last administered on 10/03/21at 07:27; Start 10/02/21 at 22:45; Stop 10/03/21 at 22:44; Status DC Morphine Sulfate (Morphine Sulfate) 4 mg PRN Q2HR PRN IVP PAIN; Start 10/02/21 at 22:45; Stop 10/03/21 at 22:44; Status DC Nitroglycerin (Nitroglycerin) 200 mcg STK-MED ONCE .ROUTE ; Start 10/02/21 at 22:48; Stop 10/02/21 at 22:48; Status DC Atorvastatin Calcium (Lipitor) 40 mg QHS PO Last administered on 10/03/21at 20:56; Start 10/03/21 at 21:00 Metoprolol Tartrate (Lopressor) 12.5 mg BID PO Last administered on 10/04/21at 08:59; Start 10/03/21 at 09:00 Aspirin (Ecotrin) 81 mg DAILYWBKFT PO Last administered on 10/04/21at 08:59; Start 10/03/21 at 08:00 Prasugrel (Effient) 10 mg DAILYWBKFT PO Last administered on 10/04/21at 08:59; Start 10/03/21 at 08:00 Ondansetron HCl (Zofran) 4 mg PRN Q6HRS PRN IVP NAUSEA/VOMITING; Start 10/03/21 at 09:30 Al Hydroxide/Mg Hydroxide (Mylanta Plus Xs) 30 ml PRN Q3HRS PRN PO HEARTBURN / GAS; Start 10/03/21 at 09:30 Calcium Carbonate/ Glycine (Tums) 500 mg PRN Q3HRS PRN PO UPSET STOMACH; Start 10/03/21 at 09:30 Zolpidem Tartrate (Ambien) 5 mg PRN QHS PRN PO INSOMNIA, MAY REPEAT IN 1HR; Start 10/03/21 at 09:30 Acetaminophen (Tylenol) 650 mg PRN Q6HRS PRN PO Headaches, Temp > 101.5F; Start 10/03/21 at 09:30 Magnesium Hydroxide (Milk Of Magnesia) 2,400 mg PRN Q12HR PRN PO CONSTIPATION; Start 10/03/21 at 09:30 Heparin Sodium (Porcine) (Heparin Sodium) 5,000 unit Q8HRS SQ ; Start 10/03/21 at 09:45; Stop 10/03/21 at 16:47; Status DC Pantoprazole Sodium (Protonix) 40 mg DAILYAC PO Last administered on 10/04/21at 05:39; Start 10/03/21 at 16:30 Vitals/I & O Vital Sign - Last 24 Hours 10/03/21 10/03/21 10/03/21 10/03/21 12:00 12:26 12:37 13:00 Temp 99.0 99.0 Pulse 62 72 Resp 23 20 B/P (MAP) 115/71 (86) 116/79 (91) Pulse Ox 96 95 O2 Delivery Room Air Room Air Room Air 10/03/21 10/03/21 10/03/21 10/03/21 14:00 15:00 16:00 16:01 Pulse 66 72 68 Resp 10 19 20 B/P (MAP) 120/74 (89) 118/85 (96) 116/72 (87) Pulse Ox 95 94 93 O2 Delivery Room Air Room Air Room Air 10/03/21 10/03/21 10/03/21 10/03/21 17:00 18:00 20:00 20:31 Temp 98.6 98.6 Pulse 68 68 73 Resp 13 17 18 B/P (MAP) 124/74 (91) 137/76 (96) 121/62 (81) Pulse Ox 93 95 93 O2 Delivery Room Air Room Air Room Air Room Air 10/03/21 10/04/21 10/04/21 10/04/21 20:56 00:00 03:00 04:24 Temp 98.6 99.0 98.6 99.0 Pulse 73 67 67 68 Resp 17 17 B/P (MAP) 121/62 115/76 (89) 115/76 (89) 127/74 (91) Pulse Ox 93 93 94 O2 Delivery Room Air Room Air Room Air O2 Flow Rate 2.0 10/04/21 10/04/21 10/04/21 10/04/21 05:25 05:40 07:00 08:59 Temp 98.4 97.4 98.4 97.4 Pulse 71 64 64 Resp 18 18 B/P (MAP) 138/67 (90) 123/71 (88) 123/71 Pulse Ox 94 97 O2 Delivery Room Air Room Air Room Air 10/04/21 10:49 Temp 97.8 97.8 Pulse 63 Resp 18 B/P (MAP) 128/64 (85) Pulse Ox 97 O2 Delivery Room Air Intake and Output 10/03/21 10/03/21 10/04/21 15:00 23:00 07:00 Intake Total 120 ml 240 ml Output Total 150 ml Balance -30 ml 240 ml Problem List Problems Medical Problems: (1) Chest pain Status: Acute (2) Smoking addiction Status: Acute (3) STEMI (ST elevation myocardial infarction) Status: Acute Assessment Rectal bleed- s/p stents, o/p colonoscopy in 6 months recommended with recent STEMI Justicifation of Admission Dx: Justifications for Admission: Justification of Admission Dx: Yes VALERIE IVY MD Oct 04, 2021 11:52
[2021-10-04] MEDS ORDERED: EMPA25TA3 PO (11:53)
[2021-10-04] MEDS ORDERED: SITA100T PO (11:53)
[2021-10-04] MEDS ORDERED: PANT40TA77 PO (11:53)
[2021-10-04] MEDS ORDERED: METO25TA4 PO (11:53)
[2021-10-04] MEDS ORDERED: PRAS10TA9 PO (11:53)
[2021-10-04] MEDS ORDERED: ATOR40TA59 PO (11:53)
[2021-10-04] MEDS ORDERED: ASPI-886 PO (11:53)
--- NOTE | 2021-10-04 11:58 | PDOC ---
[facility] PROGRESS NOTE Date of Service DOS: DATE: 10/04/21 TIME: 11:15 Chief Complaint Chief Complaint NSTEMI - with CAD to RCA s/p stenting. ASA, effient Hypertension -continue beta-melissa Dyslipidemia -Lipitor. Goal LDL less than 70 given his history of diabetes and CAD Tobacco abuse counseled extensively on cessation he is not interested at this time Diabetes - did not tolerate metformin, previously took acarbose this note is a transplant. Counseled on taking Jardiance and Januvia considering GLP-1 agonist. Obesity - Counseled on lifestyle modification Paroxysmal Atrial fibrillation -previously on Eliquis could not afford it. Did not want to have his INR checked when he was on warfarin he chooses not to take this medication. Counseled on necessity of reinitiating it. Blood in stool - likely diverticular bleed. Resolved. History of Present Illness History of Present Illness Mr Monsivais is a 66 y/o male with PMHx s/p NSTEMI and stent placement on Effient and ASA. 10/03: GI consulted for GI bleed. No h/o GI bleeding. No reflux/heartburn, dysphagia, n/v, change in appetite, chronic diarrhea, constipation, or melena. Chronic left-sided abdominal pain that can radiate to right side - stable. H/o hernia (?diastasis recti) - past workup for this and pain - "no one does anyt jose about it," and son says people don't believe him. Gained ~60 pounds a few years ago, has lost ~35 since taking himself off of Warfarin, Depakote, propranolol, fluoxetine, and Losartan. 10/04: A1c 7.2 LDL 90, creatinine 0.8, Hb 13.2 WBC 12.2. Per nursing has had some right bright red blood per rectum. Seen by GI in consultation and noted that his Cologuard was abnormal but has not had follow-up colonoscopy. Referred for outpatient colonoscopy. He is currently having diarrhea asking for solid food Echocardiogram reviewed with LV EF 50-55 and normal wall motion concentric left ventricular hypertrophy no significant aortic stenosis trace mitral regurgitation Vitals/I&O Vitals/I&O: Vital Signs Date Time Temp Pulse Resp B/P (MAP) Pulse Ox O2 Delivery O2 Flow Rate FiO2 10/04/21 10:49 97.8 63 18 128/64 (85) 97 Room Air 97.8 10/04/21 03:00 2.0 I & O 10/03/21 10/03/21 10/04/21 15:00 23:00 07:00 Intake Total 120 ml 240 ml Output Total 150 ml Balance -30 ml 240 ml Physical Exam General: Alert, Oriented X3, Cooperative Heart: Other Labs Labs: Laboratory Tests Test 10/03/21 12:46 10/04/21 03:45 10/04/21 08:25 White Blood Count 14.4 x10^3/uL (4.0-11.0) 13.0 x10^3/uL (4.0-11.0) 12.2 x10^3/uL (4.0-11.0) Red Blood Count 4.97 x10^6/uL (4.30-5.70) 4.51 x10^6/uL (4.30-5.70) 4.68 x10^6/uL (4.30-5.70) Hemoglobin 14.1 g/dL (13.0-17.5) 12.9 g/dL (13.0-17.5) 13.2 g/dL (13.0-17.5) Hematocrit 42.9 % (39.0-53.0) 38.5 % (39.0-53.0) 40.7 % (39.0-53.0) Mean Corpuscular Volume 86 fL (79-100) 85 fL (79-100) 87 fL (79-100) Mean Corpuscular Hemoglobin 28 pg (25-35) 29 pg (25-35) 28 pg (25-35) Mean Corpuscular Hemoglobin Concent 33 g/dL (31-37) 33 g/dL (31-37) 32 g/dL (31-37) Red Cell Distribution Width 14.1 % (11.5-14.5) 14.2 % (11.5-14.5) 13.9 % (11.5-14.5) Platelet Count 269 x10^3/uL (140-400) 221 x10^3/uL (140-400) 210 x10^3/uL (140-400) Neutrophils (%) (Auto) 71 % (31-73) Lymphocytes (%) (Auto) 19 % (24-48) Monocytes (%) (Auto) 9 % (0-9) Eosinophils (%) (Auto) 0 % (0-3) Basophils (%) (Auto) 1 % (0-3) Neutrophils # (Auto) 10.2 x10^3/uL (1.8-7.7) Lymphocytes # (Auto) 2.8 x10^3/uL (1.0-4.8) Monocytes # (Auto) 1.3 x10^3/uL (0.0-1.1) Eosinophils # (Auto) 0.0 x10^3/uL (0.0-0.7) Basophils # (Auto) 0.1 x10^3/uL (0.0-0.2) Assessment and Plan Assessmemt and Plan Problems Medical Problems: (1) Chest pain Status: Acute (2) Smoking addiction Status: Acute (3) STEMI (ST elevation myocardial infarction) Status: Acute Comment Review of Relevant I have reviewed the following items cleopatra (where applicable) has been applied. Medications: Current Medications Medications (Trade) Dose Ordered Sig/Massiel Route PRN Reason Start Time Stop Time Status Last Admin Dose Admin Atorvastatin Calcium (Lipitor) 40 mg QHS PO 10/03/21 21:00 10/03/21 20:56 Pantoprazole Sodium (Protonix) 40 mg DAILYAC PO 10/03/21 16:30 10/04/21 05:39 Justifications for Admission Chest Pain Indications Poss hypotension?: Yes Other Justification NEIGN HERNÁNDEZ MD Oct 04, 2021 11:58
--- NOTE | 2021-10-04 12:02 | PDOC3 ---
Discharge Summary Visit Information Date of Admission: Oct 02, 2021 Date of Discharge: Oct 04, 2021 Admitting Diagnosis: NSTEMI Final Diagnosis Problems Medical Problems: (1) Chest pain Status: Acute (2) Smoking addiction Status: Acute (3) STEMI (ST elevation myocardial infarction) Status: Acute Brief Hospital Course Allergies Allergies Coded Allergies Type Severity Reaction Last Updated Verified No Known Drug Allergies 10/02/21 No Vital Signs Vital Signs Date Time Temp Pulse Resp B/P (MAP) Pulse Ox O2 Delivery O2 Flow Rate FiO2 10/04/21 10:49 97.8 63 18 128/64 (85) 97 Room Air 97.8 10/04/21 03:00 2.0 Lab Results Laboratory Tests Test 10/02/21 19:50 10/02/21 21:36 10/02/21 22:10 10/03/21 02:00 White Blood Count 12.2 x10^3/uL (4.0-11.0) 11.9 x10^3/uL (4.0-11.0) Red Blood Count 5.55 x10^6/uL (4.30-5.70) 5.46 x10^6/uL (4.30-5.70) Hemoglobin 15.9 g/dL (13.0-17.5) 15.5 g/dL (13.0-17.5) Hematocrit 47.6 % (39.0-53.0) 46.6 % (39.0-53.0) Mean Corpuscular Volume 86 fL (79-100) 85 fL (79-100) Mean Corpuscular Hemoglobin 29 pg (25-35) 28 pg (25-35) Mean Corpuscular Hemoglobin Concent 33 g/dL (31-37) 33 g/dL (31-37) Red Cell Distribution Width 14.1 % (11.5-14.5) 14.0 % (11.5-14.5) Platelet Count 215 x10^3/uL (140-400) 220 x10^3/uL (140-400) Neutrophils (%) (Auto) 73 % (31-73) 65 % (31-73) Lymphocytes (%) (Auto) 20 % (24-48) 26 % (24-48) Monocytes (%) (Auto) 5 % (0-9) 8 % (0-9) Eosinophils (%) (Auto) 1 % (0-3) 1 % (0-3) Basophils (%) (Auto) 1 % (0-3) 1 % (0-3) Neutrophils # (Auto) 8.9 x10^3/uL (1.8-7.7) 7.7 x10^3/uL (1.8-7.7) Lymphocytes # (Auto) 2.5 x10^3/uL (1.0-4.8) 3.1 x10^3/uL (1.0-4.8) Monocytes # (Auto) 0.6 x10^3/uL (0.0-1.1) 1.0 x10^3/uL (0.0-1.1) Eosinophils # (Auto) 0.1 x10^3/uL (0.0-0.7) 0.1 x10^3/uL (0.0-0.7) Basophils # (Auto) 0.1 x10^3/uL (0.0-0.2) 0.1 x10^3/uL (0.0-0.2) Prothrombin Time 13.0 SEC (11.7-14.0) Prothromb Time International Ratio 1.0 (0.8-1.1) Activated Partial Thromboplast Time 30 SEC (24-38) Sodium Level 138 mmol/L (136-145) 140 mmol/L (136-145) Potassium Level 3.5 mmol/L (3.5-5.1) 3.9 mmol/L (3.5-5.1) Chloride Level 101 mmol/L (98-107) 104 mmol/L (98-107) Carbon Dioxide Level 29 mmol/L (21-32) 28 mmol/L (21-32) Anion Gap 8 (6-14) 8 (6-14) Blood Urea Nitrogen 15 mg/dL (8-26) 14 mg/dL (8-26) Creatinine 1.1 mg/dL (0.7-1.3) 0.8 mg/dL (0.7-1.3) Estimated GFR (Cockcroft-Gault) 67.0 96.7 BUN/Creatinine Ratio 14 (6-20) 18 (6-20) Glucose Level 236 mg/dL (70-99) 108 mg/dL (70-99) Calcium Level 8.4 mg/dL (8.5-10.1) 8.4 mg/dL (8.5-10.1) Magnesium Level 1.9 mg/dL (1.8-2.4) Total Bilirubin 0.4 mg/dL (0.2-1.0) 0.4 mg/dL (0.2-1.0) Aspartate Amino Transf (AST/SGOT) 38 U/L (15-37) 56 U/L (15-37) Alanine Aminotransferase (ALT/SGPT) 23 U/L (16-63) 21 U/L (16-63) Alkaline Phosphatase 165 U/L (46-116) 157 U/L (46-116) Troponin I High Sensitivity 3251 ng/L (4-75) 15141 ng/L (4-75) ZT-Oae-F-Type Natriuretic Peptide 931 pg/mL (0-124) Total Protein 7.0 g/dL (6.4-8.2) 6.2 g/dL (6.4-8.2) Albumin 3.4 g/dL (3.4-5.0) 3.3 g/dL (3.4-5.0) Albumin/Globulin Ratio 0.9 (1.0-1.7) 1.1 (1.0-1.7) Thyroid Stimulating Hormone (TSH) 2.701 uIU/mL (0.358-3.74) Urine Collection Type Unknown Urine Color (Auto) Light yellow Urine Turbidity Clear Urine pH (Auto) 5.5 (<5.0-8.0) Urine Specific [place] 1.031 (1.000-1.030) Urine Protein (Auto) Negative mg/dL (Negative) Urine Glucose (Auto)(UA) 100 mg/dL (Negative) Urine Ketones (Auto) Negative mg/dL (Negative) Urine Blood (Auto) Negative (Negative) Urine Nitrite Negative (Negative) Urine Bilirubin (Auto) Negative (Negative) Urine Urobilinogen (Auto) Normal mg/dL (Normal) Urine Leukocyte Esterase (Auto) Negative (Negative) Urine RBC 0 /HPF (0-2) Urine WBC Rare /HPF (0-4) Urine Squamous Epithelial Cells Occ /LPF Urine Bacteria 0 /HPF (0-FEW) Urine Mucus Slight /LPF Activated Clotting Time 250 sec (92-181) Hemoglobin A1c 7.2 % (4.8-5.6) Triglycerides Level 194 mg/dL (0-150) Cholesterol Level 151 mg/dL (0-200) LDL Cholesterol, Calculated 90 mg/dL (0-100) VLDL Cholesterol, Calculated 39 mg/dL (0-40) Non-HDL Cholesterol Calculated 129 mg/dL (0-129) HDL Cholesterol 22 mg/dL (40-60) Cholesterol/HDL Ratio 6.9 Test 10/03/21 12:46 10/04/21 03:45 10/04/21 08:25 White Blood Count 14.4 x10^3/uL (4.0-11.0) 13.0 x10^3/uL (4.0-11.0) 12.2 x10^3/uL (4.0-11.0) Red Blood Count 4.97 x10^6/uL (4.30-5.70) 4.51 x10^6/uL (4.30-5.70) 4.68 x10^6/uL (4.30-5.70) Hemoglobin 14.1 g/dL (13.0-17.5) 12.9 g/dL (13.0-17.5) 13.2 g/dL (13.0-17.5) Hematocrit 42.9 % (39.0-53.0) 38.5 % (39.0-53.0) 40.7 % (39.0-53.0) Mean Corpuscular Volume 86 fL (79-100) 85 fL (79-100) 87 fL (79-100) Mean Corpuscular Hemoglobin 28 pg (25-35) 29 pg (25-35) 28 pg (25-35) Mean Corpuscular Hemoglobin Concent 33 g/dL (31-37) 33 g/dL (31-37) 32 g/dL (31-37) Red Cell Distribution Width 14.1 % (11.5-14.5) 14.2 % (11.5-14.5) 13.9 % (11.5-14.5) Platelet Count 269 x10^3/uL (140-400) 221 x10^3/uL (140-400) 210 x10^3/uL (140-400) Neutrophils (%) (Auto) 71 % (31-73) Lymphocytes (%) (Auto) 19 % (24-48) Monocytes (%) (Auto) 9 % (0-9) Eosinophils (%) (Auto) 0 % (0-3) Basophils (%) (Auto) 1 % (0-3) Neutrophils # (Auto) 10.2 x10^3/uL (1.8-7.7) Lymphocytes # (Auto) 2.8 x10^3/uL (1.0-4.8) Monocytes # (Auto) 1.3 x10^3/uL (0.0-1.1) Eosinophils # (Auto) 0.0 x10^3/uL (0.0-0.7) Basophils # (Auto) 0.1 x10^3/uL (0.0-0.2) Laboratory Tests Test 10/03/21 12:46 10/04/21 03:45 10/04/21 08:25 White Blood Count 14.4 x10^3/uL (4.0-11.0) 13.0 x10^3/uL (4.0-11.0) 12.2 x10^3/uL (4.0-11.0) Red Blood Count 4.97 x10^6/uL (4.30-5.70) 4.51 x10^6/uL (4.30-5.70) 4.68 x10^6/uL (4.30-5.70) Hemoglobin 14.1 g/dL (13.0-17.5) 12.9 g/dL (13.0-17.5) 13.2 g/dL (13.0-17.5) Hematocrit 42.9 % (39.0-53.0) 38.5 % (39.0-53.0) 40.7 % (39.0-53.0) Mean Corpuscular Volume 86 fL (79-100) 85 fL (79-100) 87 fL (79-100) Mean Corpuscular Hemoglobin 28 pg (25-35) 29 pg (25-35) 28 pg (25-35) Mean Corpuscular Hemoglobin Concent 33 g/dL (31-37) 33 g/dL (31-37) 32 g/dL (31-37) Red Cell Distribution Width 14.1 % (11.5-14.5) 14.2 % (11.5-14.5) 13.9 % (11.5-14.5) Platelet Count 269 x10^3/uL (140-400) 221 x10^3/uL (140-400) 210 x10^3/uL (140-400) Neutrophils (%) (Auto) 71 % (31-73) Lymphocytes (%) (Auto) 19 % (24-48) Monocytes (%) (Auto) 9 % (0-9) Eosinophils (%) (Auto) 0 % (0-3) Basophils (%) (Auto) 1 % (0-3) Neutrophils # (Auto) 10.2 x10^3/uL (1.8-7.7) Lymphocytes # (Auto) 2.8 x10^3/uL (1.0-4.8) Monocytes # (Auto) 1.3 x10^3/uL (0.0-1.1) Eosinophils # (Auto) 0.0 x10^3/uL (0.0-0.7) Basophils # (Auto) 0.1 x10^3/uL (0.0-0.2) Brief Hospital Course Mr Monsivais is a 66 y/o male with PMHx s/p NSTEMI and stent placement on Effient and ASA. 10/03: GI consulted for GI bleed. No h/o GI bleeding. No reflux/heartburn, dysphagia, n/v, change in appetite, chronic diarrhea, constipation, or melena. Chronic left-sided abdominal pain that can radiate to right side - stable. H/o hernia (?diastasis recti) - past workup for this and pain - "no one does anything about it," and son says people don't believe him. Gained ~60 pounds a few years ago, has lost ~35 since taking himself off of Warfarin, Depakote, propranolol, fluoxetine, and Losartan. 10/04: A1c 7.2 LDL 90, creatinine 0.8, Hb 13.2 WBC 12.2. Per nursing has had some right bright red blood per rectum. Seen by GI in consultation and noted that his Cologuard was abnormal but has not had follow-up colonoscopy. Referred for outpatient colonoscopy. He is currently having diarrhea asking for solid food Echocardiogram reviewed with LV EF 50-55 and normal wall motion concentric left ventricular hypertrophy no significant aortic stenosis trace mitral regurgitation Consults: Cardiology, GI Problem list: NSTEMI - with CAD to RCA s/p stenting. ASA, effient Hypertension -continue beta-melissa Dyslipidemia -Lipitor. Goal LDL less than 70 given his history of diabetes and CAD Tobacco abuse counseled extensively on cessation he is not interested at this time Diabetes - did not tolerate metformin, previously took acarbose this note is a transplant. Counseled on taking Jardiance and Januvia considering GLP-1 agonist. Obesity - Counseled on lifestyle modification Paroxysmal Atrial fibrillation -previously on Eliquis could not afford it. Did not want to have his INR checked when he was on warfarin he chooses not to take this medication. Counseled on necessity of reinitiating it. Blood in stool - likely diverticular bleed. Resolved. Greater than 30 minutes spent on d/c home with self care. Needs outpatient cardiology, gastroenterology and urology follow-up needs to establish primary care Discharge Information Condition at Discharge: Improved Follow Up: Weeks (1) Disposition/Orders: D/C to Home Scheduled Aspirin (Aspirin Ec) 81 Mg Tablet., 81 MG PO DAILYWBKFT for CAD for 90 Days, #90 Ref 3 Prescribed by: NEGIN HERNÁNDEZ MD on 10/04/21 1153 Atorvastatin Calcium (Atorvastatin Calcium) 40 Mg Tablet, 40 MG PO QHS for DM2/CAD/HLD for 90 Days, #90 Ref 3 Prescribed by: NEGIN HERNÁNDEZ MD on 10/04/21 1153 Empagliflozin (Jardiance) 25 Mg Tablet, 25 MG PO DAILY for Type 2 diabetes for 90 Days, #90 Ref 3 Prescribed by: NEGIN HERNÁNDEZ MD on 10/04/21 1153 Metoprolol Tartrate (Metoprolol Tartrate) 25 Mg Tablet, 12.5 MG PO BID for CAD/AFib for 90 Days, #90 Ref 3 Prescribed by: NEGIN HERNÁNDEZ MD on 10/04/21 1153 Pantoprazole Sodium (Pantoprazole Sodium ) 40 Mg Tablet., 40 MG PO DAILYAC for GERD/GI bleed for 30 Days, #30 Ref 2 Prescribed by: NEGIN HERNÁNDEZ MD on 10/04/21 1153 Prasugrel Hcl (Effient) 10 Mg Tablet, 10 MG PO DAILYWBKFT for CAD for 90 Days, #90 Ref 3 Prescribed by: NEGIN HERNÁNDEZ MD on 10/04/21 1153 Sitagliptin Phosphate (Januvia) 100 Mg Tablet, 1 TAB PO DAILY for DM2 for 90 Days, #90 Ref 3 Prescribed by: NEGIN HERNÁNDEZ MD on 10/04/21 1153 Justicifation of Admission Dx: Justifications for Admission: Justification of Admission Dx: Yes NEGIN HERNÁNDEZ MD Oct 04, 2021 12:02
[2021-10-04 13:30] LABS: HEMATOCRIT 38.3 % (39.0-53.0); RED BLOOD COUNT 4.43 x10^6/uL (4.30-5.70); RED CELL DISTRIBUTION WIDTH 13.9 % (11.5-14.5); WHITE BLOOD COUNT 12.9 x10^3/uL (4.0-11.0)
== END 2021-10-04 14:00 | disposition home or self-care (01) | DRG 246 ==
LOC: ER 19:33 → 1 WEST ICU 22:00 → 6 SOUTH 10-04 05:21
PROVIDERS: ADMIT Student in an Organized Health Care Education/Training Program; ATTEND Student in an Organized Health Care Education/Training Program
PROC: 027135Z Dilation of Coronary Artery, Two Arteries with Two Drug-eluting Intraluminal Devices, Percutaneous Approach (ICD-10-PCS; principal; 2021-10-02)
PROC: 4A023N7 Measurement of Cardiac Sampling and Pressure, Left Heart, Percutaneous Approach (ICD-10-PCS; 2021-10-02)
PROC: B2151ZZ Fluoroscopy of Left Heart using Low Osmolar Contrast (ICD-10-PCS; 2021-10-02)
PROC: B2111ZZ Fluoroscopy of Multiple Coronary Arteries using Low Osmolar Contrast (ICD-10-PCS; 2021-10-02)
DX: I21.3 ST elevation (STEMI) myocardial infarction of unspecified site (principal); K57.91 Diverticulosis of intestine, part unspecified, without perforation or abscess with bleeding; I50.33 Acute on chronic diastolic (congestive) heart failure; E11.65 Type 2 diabetes mellitus with hyperglycemia; E78.5 Hyperlipidemia, unspecified; F17.210 Nicotine dependence, cigarettes, uncomplicated; F43.10 Post-traumatic stress disorder, unspecified; I25.10 Atherosclerotic heart disease of native coronary artery without angina pectoris; I25.2 Old myocardial infarction; I48.0 Paroxysmal atrial fibrillation; K76.0 Fatty (change of) liver, not elsewhere classified; Z82.49 Family history of ischemic heart disease and other diseases of the circulatory system; Z98.61 Coronary angioplasty status; E66.9 Obesity, unspecified; I11.0 Hypertensive heart disease with heart failure; Z68.32 Body mass index [BMI] 32.0-32.9, adult
CPT/HCPCS: 36415; 37252; 71045; 80053; 80061; 81001; 83036; 83735; 83880; 84443; 84484; 85025; 85027; 85347; 85610; 85730; 92928; 93005; 93306; 93458; 96361; 96365; 96375; 96376; 99152; 99153; C1725; C1753; C1874; C1894; J1644; J2250; J2270; J2405; J3010; J3490; Q9967; 99285-25; C8929; C9600; G0378; J3246